=== PATIENT | male | born 1975 | race Caucasian/White ===

== ENCOUNTER 2020-01-05 11:15 | Day surgery (SDC) | payer BC ==
[2020-01-05] MEDS ORDERED: LIDOcaine 2% 5ml jelly ONE (12:13)
== END 2020-01-05 12:40 | disposition home or self-care (01) ==
LOC: WOUND CARE 11:15
PROVIDERS: ATTEND Nurse Practitioner
DX: K94.09 Other complications of colostomy (principal); L98.492 Non-pressure chronic ulcer of skin of other sites with fat layer exposed; I10 Essential (primary) hypertension; F32.9 Major depressive disorder, single episode, unspecified; Z86.711 Personal history of pulmonary embolism; Z79.84 Long term (current) use of oral hypoglycemic drugs; Y83.8 Other surgical procedures as the cause of abnormal reaction of the patient, or of later complication, without mention of misadventure at the time of the procedure; Y82.8 Other medical devices associated with adverse incidents; Y92.234 Operating room of hospital as the place of occurrence of the external cause
CPT/HCPCS: 82948; 97597

== ENCOUNTER 2020-01-12 13:15 | Outpatient (CLI) | payer BC ==
[2020-01-12] MEDS ORDERED: LIDOcaine 2% 5ml jelly ONE ×2 (14:22→14:25)
== END 2020-01-12 14:30 | disposition home or self-care (01) ==
LOC: WOUND CARE 13:15 → EDSTATUS 13:40 → WOUND CARE 14:30
PROVIDERS: ATTEND Nurse Practitioner
DX: T81.89XA Other complications of procedures, not elsewhere classified, initial encounter (principal); L98.492 Non-pressure chronic ulcer of skin of other sites with fat layer exposed; I10 Essential (primary) hypertension; F32.9 Major depressive disorder, single episode, unspecified; Z86.711 Personal history of pulmonary embolism; Z79.84 Long term (current) use of oral hypoglycemic drugs; Y83.8 Other surgical procedures as the cause of abnormal reaction of the patient, or of later complication, without mention of misadventure at the time of the procedure; Y92.234 Operating room of hospital as the place of occurrence of the external cause
CPT/HCPCS: 87070; 87075; 87102; 97597

== ENCOUNTER 2020-01-19 12:50 | Outpatient (CLI) | payer BC | END 2020-01-19 23:59 | disposition home or self-care (01) | LOC: WOUND CARE 12:50 → EDSTATUS 13:00 → WOUND CARE 23:59 | PROVIDERS: ATTEND Nurse Practitioner | DX: T81.89XD Other complications of procedures, not elsewhere classified, subsequent encounter (principal); E11.622 Type 2 diabetes mellitus with other skin ulcer; L98.492 Non-pressure chronic ulcer of skin of other sites with fat layer exposed; I10 Essential (primary) hypertension; E11.65 Type 2 diabetes mellitus with hyperglycemia; L84 Corns and callosities; Z86.711 Personal history of pulmonary embolism; F32.9 Major depressive disorder, single episode, unspecified; Z79.84 Long term (current) use of oral hypoglycemic drugs; Y83.8 Other surgical procedures as the cause of abnormal reaction of the patient, or of later complication, without mention of misadventure at the time of the procedure | CPT/HCPCS: 11042; 82948; 87070; 87075; 87076; 87077; 87102; 87185; 87186 ==

== ENCOUNTER 2020-01-24 10:20 | Outpatient (CLI) | payer BC ==
[2020-01-24] MEDS ORDERED: LIDOcaine 2% 5ml jelly ONE (10:47)
== END 2020-01-24 23:59 | disposition home or self-care (01) ==
LOC: EDSTATUS 10:20 → WOUND CARE 10:20
PROVIDERS: ATTEND Nurse Practitioner
DX: T81.89XD Other complications of procedures, not elsewhere classified, subsequent encounter (principal); L98.492 Non-pressure chronic ulcer of skin of other sites with fat layer exposed; S31.109S Unspecified open wound of abdominal wall, unspecified quadrant without penetration into peritoneal cavity, sequela; I10 Essential (primary) hypertension; F32.9 Major depressive disorder, single episode, unspecified; Z86.711 Personal history of pulmonary embolism; Z79.84 Long term (current) use of oral hypoglycemic drugs; Y83.8 Other surgical procedures as the cause of abnormal reaction of the patient, or of later complication, without mention of misadventure at the time of the procedure; X58.XXXD Exposure to other specified factors, subsequent encounter
CPT/HCPCS: 11043; 36416; 82948

== ENCOUNTER 2020-02-02 09:40 | Outpatient (CLI) | payer BC ==
[2020-02-02 12:03] LABS: BASOPHILS # (AUTO) 0.1 X10'3 (0-0.2); BASOPHILS % (AUTO) 0.9 % (0-1); EOSINOPHILS # (AUTO) 0.2 X10'3 (0-0.9); EOSINOPHILS % (AUTO) 3.4 % (0-6); LYMPHOCYTES % (AUTO) 33.7 % (21-51); MEAN CORPUSCULAR HEMOGLOBIN 25.7 PG (27.0-31.0); MEAN CORPUSCULAR HGB CONC 32.4 g/dL (33.0-36.5); MEAN CORPUSCULAR VOLUME 79.3 FL (78-98); MEAN PLATELET VOLUME 7.3 FL (7.4-10.4); MONOCYTES # (AUTO) 0.4 X10'3 (0-0.9); MONOCYTES % (AUTO) 7.5 % (2-12); NEUTROPHILS # (AUTO) 3.3 X10'3 (1.8-7.7); NEUTROPHILS % (AUTO) 54.5 % (42-75); PRE OP HEMATOCRIT 40.3 % (42.0-52.0); PRE OP PLATELET COUNT 226 X10'3 (140-440); RED BLOOD COUNT 5.08 X10'6 (4.70-6.10); RED CELL DISTRIBUTION WIDTH 16.6 % (11.5-14.5)
[2020-02-02 12:16] LABS: ALBUMIN 3.8 G/DL (3.4-5.0); ALBUMIN/GLOBULIN RATIO 0.9 (1.1-1.5); ALKALINE PHOSPHATASE 55 IU/L (46-116); BLOOD UREA NITROGEN 9 MG/DL (7-18); BUN/CREATININE RATIO 10.3 (5.4-32.0); C-REACTIVE PROTEIN 0.34 MG/DL (0.0-0.5); CALCIUM 9.3 MG/DL (8.5-10.1); CHLORIDE 103 MMOL/L (99-107); CREATININE 0.87 MG/DL (0.60-1.10); PRE OP ALT 15 U/L (30-65); PRE OP ANION GAP 10 (8-16); PRE OP AST 12 U/L (10-37); PRE OP BILIRUB, TOTAL 0.3 MG/DL (0.0-1.0); PRE OP GLUCOSE 96 MG/DL (70-104); PRE OP SODIUM 140 MMOL/L (135-145); TOTAL CARBON DIOXIDE 26.7 MMOL/L (24-32); TOTAL PROTEIN 8.2 G/DL (6.4-8.2); eGFR > 90 ML/MIN
[2020-02-02] MEDS ORDERED: APIX5TAB3 PO (15:36)
[2020-02-02] MEDS ORDERED: HYDR-3686 PO (15:36)
[2020-02-02] MEDS ORDERED: SERT50TA10 PO (15:36)
[2020-02-02] MEDS ORDERED: AMLO10TA13 PO (15:36)
[2020-02-02] MEDS ORDERED: ROSU5TAB12 PO (15:36)
[2020-02-02] MEDS ORDERED: LISI10TA4 PO (15:36)
[2020-02-02] MEDS ORDERED: METF-436 PO (15:36)
[2020-02-02] MEDS ORDERED: PANT-47 PO (15:36)
[2020-02-02] MEDS ORDERED: OXYC-138 PO (15:36)
== END 2020-02-02 23:59 | disposition home or self-care (01) ==
LOC: WOUND CARE 09:40 → EDSTATUS 10:00 → WOUND CARE 23:59
PROVIDERS: ATTEND Nurse Practitioner
DX: T81.89XD Other complications of procedures, not elsewhere classified, subsequent encounter (principal); E11.622 Type 2 diabetes mellitus with other skin ulcer; L98.492 Non-pressure chronic ulcer of skin of other sites with fat layer exposed; E11.65 Type 2 diabetes mellitus with hyperglycemia; I10 Essential (primary) hypertension; L84 Corns and callosities; F32.9 Major depressive disorder, single episode, unspecified; Z86.711 Personal history of pulmonary embolism; Z79.84 Long term (current) use of oral hypoglycemic drugs; Y83.8 Other surgical procedures as the cause of abnormal reaction of the patient, or of later complication, without mention of misadventure at the time of the procedure
CPT/HCPCS: 11042; 36415; 80053; 82948; 85025; 85651; 86140; 87070; 87075; 87102; 87635; 93005; C9803; 87185

== ENCOUNTER → 2020-02-02 | Day surgery (SDC) | payer BC ==
[2020-02-02] VITALS (13 sets, daily range): BP systolic 109–134; BP diastolic 80–91
[~2020-02-02] VITALS: Ht 193 cm; Wt 86.3 kg
[~2020-02-02] MED LIST: AMLO10TA13 PO; AMOX-422 PO; APIX5TAB3 PO; CIPR500T5 PO; HYDR-3686 PO; LIDOcaine 2% (20mg/ml) 5ml vial ONE; LISI10TA4 PO; METF-436 PO; METF-880 PO; METR-159 PO; OXYC-138 PO; OXYC1TAB17 PO; PANT-47 PO; PANT40TA54 PO; POTA20TA19 PO; ROSU5TAB12 PO; SENN-145 PO; SERT50TA10 PO; acetaminophen 1,000mg/100ml IV 100 ML IV PRN; amLODIPine 5mg tablet PO SCH; apixaban 5mg tablet PO SCH; atorvastatin 20mg tablet PO SCH; bacitracin 15gm ointment TP ONE; ceFAZolin 1000mg inj ONE; dexamethasone sod phosphate 4mg/ml inj. ONE; ePHEDrine 50MG/ML INJ. ONE; famotidine 20mg tablet PO ONE; fentaNYL/PF 50MCG/1 ML 2ML syringe ONE; lisinopril 10 MG tablet PO SCH; meperidine/PF 25mg/ml syringe IV PRN; midazolam 2 mg/2 ml injection ONE; morphine 10mg/ml inj. ONE; morphine 2 MG/ML inj. syringe IV PRN; morphine 4 MG/ML inj SYRINge IV PRN; ondansetron/PF 4mg/2ml inj IV PRN; ondansetron/PF 4mg/2ml inj ONE; pantoprazole 40mg Tablet.DR PO SCH; proCHLORperazine 10 MG/2 ml inj IV PRN; propofol inj 20 ML IV ONE; ringers solution, lacted 1,000 ML IV SCH; sertraline 50mg tablet PO SCH; sevoflurane 250ml liquid IH ONE
--- NOTE | 2020-02-02 17:05 | NUR ---
RECEIVED FROM OR VIA [facility] ACCOMPANIED BY ANESTHESIOLOGIST DR HAYNES, REPORT GIVEN. PT DROWSY BUT AROUSES EASILY, DENIES PAIN.20 GAUGE PIV L UE PATENT AND RUNNING LR AT 100 ML/HR. WOUND VAC DRESSING TO ABD CDI AND TO SUCTION AT 125 MM/HG. OSTOMY BAG LUQ ABD INTACT AND COLLECTING GREENISH BROWN MATTER. PPULSES PALPABLE, BRISK CAP REFILL, SKIN PINK AND WARM, VSS, CAREY, ABD SOFT. L PUPIL DILATED, WAS PRESENT BEFORE SURGERY. RESTING COMFORTABLY AT THIS TIME.
--- NOTE | 2020-02-02 18:55 | NUR ---
PT A&O X4, TOLERATING FLUIDS, ABLE TO DRESS SELF AND AMBULATE WITH NO ASSIST., DENIES PAIN.20 GAUGE PIV L UE DC/D CATH TIP INTACT. WOUND VAC DRESSING TO ABD CDI AND TO SUCTION AT 125 MM/HG. OSTOMY BAG LUQ ABD INTACT AND COLLECTING GREENISH BROWN MATTER. PPULSES PALPABLE, BRISK CAP REFILL, SKIN PINK AND WARM, VSS, CAREY, ABD SOFT. L PUPIL DILATED, WAS PRESENT BEFORE SURGERY. DISCHARGE INSTRUCTIONS GIVEN AND PT VERBALIZED UNDERSTANDING. TRANSPORTED VIA WHEELCHAIR TO MOTHER IN PRIVATE VEHICLE TO HOME.
== END | disposition home or self-care (01) ==
LOC: PAS 15:15 → EDSTATUS 15:15
PROVIDERS: ATTEND Surgery
DX: T81.89XA Other complications of procedures, not elsewhere classified, initial encounter (principal); I10 Essential (primary) hypertension; E78.5 Hyperlipidemia, unspecified; F32.9 Major depressive disorder, single episode, unspecified; E11.9 Type 2 diabetes mellitus without complications; K21.9 Gastro-esophageal reflux disease without esophagitis; Z86.711 Personal history of pulmonary embolism; Z79.01 Long term (current) use of anticoagulants; Z79.899 Other long term (current) drug therapy; Y83.8 Other surgical procedures as the cause of abnormal reaction of the patient, or of later complication, without mention of misadventure at the time of the procedure; Y92.89 Other specified places as the place of occurrence of the external cause
CPT/HCPCS: 11042; 82948; 97607; J0690; J1100; J2001; J2250; J2270; J2405; J2704; J3010; J7120; A4618; A6550; A7000

== ENCOUNTER 2020-02-06 10:24 | Outpatient (CLI) | payer BC ==
[~2020-02-06 10:24] MED LIST changes: -AMOX-422 PO; -CIPR500T5 PO; -LIDOcaine 2% (20mg/ml) 5ml vial ONE; -METF-880 PO; -METR-159 PO; -OXYC1TAB17 PO; -PANT40TA54 PO; -POTA20TA19 PO; -SENN-145 PO; -acetaminophen 1,000mg/100ml IV 100 ML IV PRN; -amLODIPine 5mg tablet PO SCH; -apixaban 5mg tablet PO SCH; -atorvastatin 20mg tablet PO SCH; -bacitracin 15gm ointment TP ONE; -ceFAZolin 1000mg inj ONE; -dexamethasone sod phosphate 4mg/ml inj. ONE; -ePHEDrine 50MG/ML INJ. ONE; -famotidine 20mg tablet PO ONE; -fentaNYL/PF 50MCG/1 ML 2ML syringe ONE; -lisinopril 10 MG tablet PO SCH; -meperidine/PF 25mg/ml syringe IV PRN; -midazolam 2 mg/2 ml injection ONE; -morphine 10mg/ml inj. ONE; -morphine 2 MG/ML inj. syringe IV PRN; -morphine 4 MG/ML inj SYRINge IV PRN; -ondansetron/PF 4mg/2ml inj IV PRN; -ondansetron/PF 4mg/2ml inj ONE; -pantoprazole 40mg Tablet.DR PO SCH; -proCHLORperazine 10 MG/2 ml inj IV PRN; -propofol inj 20 ML IV ONE; -ringers solution, lacted 1,000 ML IV SCH; -sertraline 50mg tablet PO SCH; -sevoflurane 250ml liquid IH ONE
[2020-02-06] MEDS ORDERED: LIDOcaine 2% 5ml jelly ONE (10:42)
== END 2020-02-06 23:59 | disposition home or self-care (01) ==
LOC: WOUND CARE 10:24 → EDSTATUS 11:00 → WOUND CARE 23:59
PROVIDERS: ATTEND Nurse Practitioner
DX: T81.89XA Other complications of procedures, not elsewhere classified, initial encounter (principal); E11.622 Type 2 diabetes mellitus with other skin ulcer; L98.492 Non-pressure chronic ulcer of skin of other sites with fat layer exposed; E11.65 Type 2 diabetes mellitus with hyperglycemia; I10 Essential (primary) hypertension; L84 Corns and callosities; F32.9 Major depressive disorder, single episode, unspecified; Z86.711 Personal history of pulmonary embolism; Z79.84 Long term (current) use of oral hypoglycemic drugs; Y83.8 Other surgical procedures as the cause of abnormal reaction of the patient, or of later complication, without mention of misadventure at the time of the procedure; Y92.234 Operating room of hospital as the place of occurrence of the external cause
CPT/HCPCS: 82948; 97597; 97598

== ENCOUNTER 2020-02-09 11:07 | Inpatient (IN) | payer BC ==
[~2020-02-09] VITALS: Ht 193 cm; Wt 86.4 kg
[2020-02-09 12:09] LABS: BASOPHILS # (AUTO) 0.1 X10'3 (0-0.2); BASOPHILS % (AUTO) 0.6 % (0-1); EOSINOPHILS # (AUTO) 0.1 X10'3 (0-0.9); EOSINOPHILS % (AUTO) 0.6 % (0-6); HEMATOCRIT 47.2 % (42.0-52.0); HEMOGLOBIN 15.2 g/dl (14.0-17.9); LYMPHOCYTES # (AUTO) 1.9 X10'3 (1.1-4.8); LYMPHOCYTES % (AUTO) 18.7 % (21-51); MEAN CORPUSCULAR HEMOGLOBIN 25.7 PG (27.0-31.0); MEAN CORPUSCULAR HGB CONC 32.3 g/dL (33.0-36.5); MEAN CORPUSCULAR VOLUME 79.6 FL (78-98); MEAN PLATELET VOLUME 7.5 FL (7.4-10.4); MONOCYTES # (AUTO) 0.5 X10'3 (0-0.9); MONOCYTES % (AUTO) 5.2 % (2-12); NEUTROPHILS # (AUTO) 7.5 X10'3 (1.8-7.7); NEUTROPHILS % (AUTO) 74.9 % (42-75); PLATELET COUNT 329 X10'3 (140-440); RED BLOOD COUNT 5.93 X10'6 (4.70-6.10); RED CELL DISTRIBUTION WIDTH 16.9 % (11.5-14.5)
[2020-02-09 12:22] LABS: ALANINE AMINOTRANSFERASE 26 U/L (12-78); ALBUMIN 4.5 G/DL (3.4-5.0); ALKALINE PHOSPHATASE 60 IU/L (46-116); ANION GAP 10 (8-16); ASPARTATE AMINO TRANSFERASE 21 U/L (10-37); BILIRUBIN,TOTAL 0.5 MG/DL (0.1-1.0); BLOOD UREA NITROGEN 11 MG/DL (7-18); CALCIUM 9.3 MG/DL (8.5-10.1); CHLORIDE 99 MMOL/L (99-107); GLUCOSE 148 MG/DL (70-104); POTASSIUM 3.8 MMOL/L (3.5-5.1); SODIUM 134 MMOL/L (135-145); TOTAL CARBON DIOXIDE 25.2 MMOL/L (24-32); eGFR 81 ML/MIN
[2020-02-09] MEDS ORDERED: CIPR500T5 PO (17:02)
[2020-02-09] MEDS ORDERED: METR-159 PO (17:02)
[2020-02-09] MEDS ORDERED: SENN-145 PO (17:02)
[2020-02-09] MEDS ORDERED: magnesium 4gm in 100ml NS 100 ML IV PRN (17:15)
[2020-02-09] MEDS ORDERED: magnesium Cl slow-release 64mg tablet PO PRN (17:15)
[2020-02-09] MEDS ORDERED: potassium Cl 20 mEq SR tablet PO PRN ×2 (17:15)
[2020-02-09] MEDS ORDERED: ondansetron/PF 4mg/2ml inj IV PRN (17:15)
[2020-02-09] MEDS ORDERED: acetaminophen 650mg rectal suppository RC PRN (17:15)
[2020-02-09] MEDS ORDERED: magnesium 2GM in 50ml NS 50 ML IV PRN (17:15)
[2020-02-09] MEDS ORDERED: morphine 2 MG/ML inj. syringe IV PRN (17:15)
[2020-02-09] MEDS ORDERED: potassium CL 10mEq/100ml bag 100 ML IV PRN (17:15)
[2020-02-09] MEDS ORDERED: dextrose ORAL solution 15 GM/59 ML bottle PO PRN ×2 (17:40)
[2020-02-09] MEDS ORDERED: MESSAGE TO PHARMACY PO ONE (17:40)
[2020-02-09] MEDS ORDERED: insulin Lispro (HumaLOG) vial - multi-dose SQ SCH (17:40)
[2020-02-09] MEDS ORDERED: dextrose 50%-water 50ml dispensing syringe IV PRN ×2 (17:40)
[2020-02-09] MEDS ORDERED: glucagon, human recombinant 1mg kit SUBCUT PRN (17:40)
[2020-02-09 17:59] LABS: HEMOGLOBIN A1C 5.2 % (4.5-6.2)
[2020-02-09 18:00] VITALS: BP 133/95
[2020-02-09] MEDS: normal saline 1000ml 1,000 ML IV SCH (18:14)
--- NOTE | 2020-02-09 19:35 | NUR ---
PATIENT ADMITTED TO ROOM 356B FROM ER FOR N/V ABDOMINAL PAIN. PLACED COMFORTABLE IN BED. VITAL SIGNS TAKEN AND RECORDED.
[2020-02-09] MEDS: K and/or MAG REPLACEMENT MC SCH (20:00)
--- NOTE | 2020-02-09 21:20 | NUR ---
PATIENT VERY PAINFUL, NOT TIME YET FOR MORPHINE, PAGED DR. TALAMANTES AND INFORMED OF PATIENT'S SEVERE PAIN WITH ORDER TO GIVE DILAUDED 0.5 MG IV Q4HRS PRN.
[2020-02-09] MEDS: insulin glargine (Lantus) pen - multi-dose SQ SCH (21:30)
[2020-02-09] MEDS: HYDROmorphone inj. 0.5 MG/0.5 ML DISP.SYRIN IV PRN (21:35)
[2020-02-09 23:32] VITALS: BP 125/90
[2020-02-10] MEDS: normal saline 1000ml 1,000 ML IV SCH ×2 (05:40→13:15)
[2020-02-10 06:00] LABS: BASOPHILS % (AUTO) 0.5 % (0-1); EOSINOPHILS # (AUTO) 0.1 X10'3 (0-0.9); EOSINOPHILS % (AUTO) 0.7 % (0-6); HEMATOCRIT 39.8 % (42.0-52.0); LYMPHOCYTES # (AUTO) 1.8 X10'3 (1.1-4.8); LYMPHOCYTES % (AUTO) 20.3 % (21-51); MEAN CORPUSCULAR HEMOGLOBIN 25.9 PG (27.0-31.0); MEAN CORPUSCULAR HGB CONC 32.8 g/dL (33.0-36.5); MEAN CORPUSCULAR VOLUME 78.8 FL (78-98); MEAN PLATELET VOLUME 7.9 FL (7.4-10.4); MONOCYTES # (AUTO) 0.5 X10'3 (0-0.9); MONOCYTES % (AUTO) 5.5 % (2-12); NEUTROPHILS # (AUTO) 6.4 X10'3 (1.8-7.7); PLATELET COUNT 249 X10'3 (140-440); RED BLOOD COUNT 5.04 X10'6 (4.70-6.10); RED CELL DISTRIBUTION WIDTH 16.3 % (11.5-14.5); WHITE BLOOD COUNT 8.8 X10'3 (4.5-11.0)
[2020-02-10 06:16] LABS: ALBUMIN 3.7 G/DL (3.4-5.0); ANION GAP 8 (8-16); BLOOD UREA NITROGEN 11 MG/DL (7-18); BUN/CREATININE RATIO 14.9 (5.4-32.0); CALCIUM 8.9 MG/DL (8.5-10.1); CHLORIDE 105 MMOL/L (99-107); CREATININE 0.74 MG/DL (0.60-1.10); GLUCOSE 122 MG/DL (70-104); MAGNESIUM 1.8 MG/DL (1.5-2.4); POTASSIUM 3.3 MMOL/L (3.5-5.1); SODIUM 138 MMOL/L (135-145); TOTAL CARBON DIOXIDE 24.6 MMOL/L (24-32); eGFR > 90 ML/MIN
--- NOTE | 2020-02-10 06:36 | NUR ---
Problems reprioritized. Patient report given, questions answered & plan of care reviewed with ANDRÉS WRIGHT.
--- NOTE | 2020-02-10 06:51 | NUR ---
Patient in room [facility] 356. I have received report from alissa maxwell rn and had the opportunity to ask questions and assume patient care.
[2020-02-10] MEDS: potassium CL 10mEq/100ml bag 100 ML IV PRN ×3 (07:32→13:11)
[2020-02-10 08:00] VITALS: BP 123/92
[2020-02-10] MEDS: HYDROmorphone inj. 0.5 MG/0.5 ML DISP.SYRIN IV PRN ×4 (08:38→20:18)
[2020-02-10] MEDS: K and/or MAG REPLACEMENT MC SCH ×2 (08:45→20:00)
[2020-02-10 11:52] VITALS: BP 126/94
--- NOTE | 2020-02-10 12:21 | NUR ---
Pt presented with c/o abdominal pain and N/V with wound VAC to abdominal wound. Wound care has been consulted, pending assessment at this time. Pt currently NPO. Recommend diet advancement to regular as medically indicated in view of patient with A1c 5.2%. Will continue to follow and monitor need for nutrition intervention with PO diet advancement. Addendum: 02/10/20 at [address] Amended: Links added.
--- NOTE | 2020-02-10 12:39 | NUR ---
PT REFUSED BLOOD SUGAR, BECAME COMBATIVE Addendum: 02/10/20 at 1510 by Carina Altamirano RN DISREGARD NOTE, WRONG PT
--- NOTE | 2020-02-10 15:11 | NUR ---
PAGER ID: [phone] MESSAGE: JUNG CALLOWAY. MED REC NEEDS TO BE ADDRESSED. SURGICAL ANDRÉS [id number]
[2020-02-10] MEDS: apixaban 5mg tablet PO SCH (15:45)
[2020-02-10] MEDS: sertraline 50mg tablet PO SCH (16:28)
[2020-02-10] MEDS: lisinopril 10 MG tablet PO SCH (16:34)
--- NOTE | 2020-02-10 19:02 | NUR ---
Problems reprioritized. Patient report given, questions answered & plan of care reviewed with alissa maxwell rn.
--- NOTE | 2020-02-10 19:03 | NUR ---
Patient in room [facility] 356. I have received report from ANDRÉS WRIGHT and had the opportunity to ask questions and assume patient care.
[2020-02-10 20:00] VITALS: BP 127/94
[2020-02-10] MEDS: hydrOXYzine 25 MG tablet PO SCH (20:19)
[2020-02-10] MEDS: insulin glargine (Lantus) pen - multi-dose SQ SCH (23:34)
[2020-02-11] VITALS: BP 121/90
[2020-02-11] MEDS: HYDROmorphone inj. 0.5 MG/0.5 ML DISP.SYRIN IV PRN ×4 (00:31→21:49)
[2020-02-11] MEDS: normal saline 1000ml 1,000 ML IV SCH ×3 (00:31→19:37)
[2020-02-11 05:11] LABS: ALBUMIN 3.5 G/DL (3.4-5.0); ANION GAP 12 (8-16); CALCIUM 8.5 MG/DL (8.5-10.1); CHLORIDE 101 MMOL/L (99-107); CREATININE 0.72 MG/DL (0.60-1.10); GLUCOSE 108 MG/DL (70-104); MAGNESIUM 1.6 MG/DL (1.5-2.4); POTASSIUM 3.6 MMOL/L (3.5-5.1); SODIUM 136 MMOL/L (135-145); eGFR > 90 ML/MIN
[2020-02-11 05:14] LABS: BLOOD UREA NITROGEN 9 MG/DL (7-18); BUN/CREATININE RATIO 12.5 (5.4-32.0)
[2020-02-11 06:29] LABS: BASOPHILS # (AUTO) 0.1 X10'3 (0-0.2); BASOPHILS % (AUTO) 0.7 % (0-1); EOSINOPHILS # (AUTO) 0.1 X10'3 (0-0.9); EOSINOPHILS % (AUTO) 1.8 % (0-6); HEMATOCRIT 38.2 % (42.0-52.0); HEMOGLOBIN 12.9 g/dl (14.0-17.9); LYMPHOCYTES # (AUTO) 2.1 X10'3 (1.1-4.8); LYMPHOCYTES % (AUTO) 26.9 % (21-51); MEAN CORPUSCULAR HEMOGLOBIN 26.6 PG (27.0-31.0); MEAN CORPUSCULAR HGB CONC 33.7 g/dL (33.0-36.5); MEAN CORPUSCULAR VOLUME 79.1 FL (78-98); MEAN PLATELET VOLUME 7.8 FL (7.4-10.4); MONOCYTES # (AUTO) 0.6 X10'3 (0-0.9); MONOCYTES % (AUTO) 7.4 % (2-12); NEUTROPHILS # (AUTO) 4.9 X10'3 (1.8-7.7); NEUTROPHILS % (AUTO) 63.2 % (42-75); PLATELET COUNT 214 X10'3 (140-440); RED BLOOD COUNT 4.83 X10'6 (4.70-6.10); RED CELL DISTRIBUTION WIDTH 16.3 % (11.5-14.5); WHITE BLOOD COUNT 7.7 X10'3 (4.5-11.0)
--- NOTE | 2020-02-11 06:30 | NUR ---
Problems reprioritized. Patient report given, questions answered & plan of care reviewed with VENU WRIGHT.
--- NOTE | 2020-02-11 06:44 | NUR ---
Patient in room [facility] 356. I have received report from ADRIANA Donovan and had the opportunity to ask questions and assume patient care.
[2020-02-11 07:00] VITALS: BP 129/91
[2020-02-11] MEDS: sennosides 8.6mg tablet PO SCH (08:00)
[2020-02-11] MEDS: K and/or MAG REPLACEMENT MC SCH ×2 (08:00→20:00)
[2020-02-11] MEDS: lisinopril 10 MG tablet PO SCH (08:46)
[2020-02-11] MEDS: sertraline 50mg tablet PO SCH (08:46)
[2020-02-11] MEDS: apixaban 5mg tablet PO SCH (08:46)
[2020-02-11] MEDS: atorvastatin 20mg tablet PO SCH (08:46)
[2020-02-11] MEDS: amLODIPine 5mg tablet PO SCH (08:47)
[2020-02-11 11:00] VITALS: BP 122/89
--- NOTE | 2020-02-11 15:01 | NUR ---
Nutrition consult: Received TC from JUAN RAMON stating pt previously received colostomy at [facility] however did not receive nutrition education. Pt seen at bedside provided with written and verbal protein and colostomy nutrition therapy educations with a list of fiber content in food. Pt reports little to no nutrition education was provided to him at [facility] other than that he could eat most foods as long as they were in cup sized portions. Despite not receiving appropriate nutrition therapy education pt seems to already have a pretty good understanding of appropriate diet with new colostomy, likely d/t trial and error eating. Pt reports he usually eats chicken, white toast, cold cereal, cooked veggies and canned fruits. Pt states he consumes no sugar Gatorade and though not with very adequate water intake, however states his SO is encouraging water intake. All of patient's questions were answered at this time. RD contact information provided and pt encouraged to reach out if additional questions. Pt endorsing a good appetite, diet was just advanced to full liquids from NPO. Recommend diet advancement to low fiber as medically indicated. Pt requests cottage cheese with dinners once diet is advanced, d/w dietary. Pt denies food allergies or difficulty chewing/swallowing. Will continue to follow. Addendum: 02/11/20 at [address] Amended: Links added.
--- NOTE | 2020-02-11 18:21 | NUR ---
Problems reprioritized. Patient report given, questions answered & plan of care reviewed with ADRIANA Donovan.
--- NOTE | 2020-02-11 18:30 | NUR ---
Patient in room [facility] 356. I have received report from VENU WRIGHT and had the opportunity to ask questions and assume patient care.
[2020-02-11 20:00] VITALS: BP 111/79
[2020-02-11] MEDS: insulin glargine (Lantus) pen - multi-dose SQ SCH (21:00)
[2020-02-11] MEDS: hydrOXYzine 25 MG tablet PO SCH (21:51)
[2020-02-12] VITALS: BP 123/88
[2020-02-12] MEDS: HYDROmorphone inj. 0.5 MG/0.5 ML DISP.SYRIN IV PRN ×2 (04:45→11:23)
[2020-02-12] MEDS: normal saline 1000ml 1,000 ML IV SCH (04:49)
[2020-02-12 05:39] LABS: ALBUMIN 3.6 G/DL (3.4-5.0); ANION GAP 9 (8-16); BLOOD UREA NITROGEN 7 MG/DL (7-18); BUN/CREATININE RATIO 8.9 (5.4-32.0); CALCIUM 8.9 MG/DL (8.5-10.1); CHLORIDE 106 MMOL/L (99-107); CREATININE 0.79 MG/DL (0.60-1.10); GLUCOSE 79 MG/DL (70-104); MAGNESIUM 1.9 MG/DL (1.5-2.4); POTASSIUM 3.4 MMOL/L (3.5-5.1); SODIUM 140 MMOL/L (135-145); TOTAL CARBON DIOXIDE 25.1 MMOL/L (24-32); eGFR > 90 ML/MIN
[2020-02-12 05:40] LABS: BASOPHILS # (AUTO) 0.1 X10'3 (0-0.2); BASOPHILS % (AUTO) 1.1 % (0-1); EOSINOPHILS # (AUTO) 0.2 X10'3 (0-0.9); EOSINOPHILS % (AUTO) 3.4 % (0-6); HEMATOCRIT 40.5 % (42.0-52.0); HEMOGLOBIN 13.2 g/dl (14.0-17.9); LYMPHOCYTES # (AUTO) 2.6 X10'3 (1.1-4.8); LYMPHOCYTES % (AUTO) 42.1 % (21-51); MEAN CORPUSCULAR HEMOGLOBIN 25.8 PG (27.0-31.0); MEAN CORPUSCULAR HGB CONC 32.6 g/dL (33.0-36.5); MEAN CORPUSCULAR VOLUME 79.1 FL (78-98); MEAN PLATELET VOLUME 7.6 FL (7.4-10.4); MONOCYTES # (AUTO) 0.5 X10'3 (0-0.9); MONOCYTES % (AUTO) 8.6 % (2-12); NEUTROPHILS # (AUTO) 2.8 X10'3 (1.8-7.7); NEUTROPHILS % (AUTO) 44.8 % (42-75); PLATELET COUNT 206 X10'3 (140-440); RED BLOOD COUNT 5.12 X10'6 (4.70-6.10); RED CELL DISTRIBUTION WIDTH 16.2 % (11.5-14.5); WHITE BLOOD COUNT 6.1 X10'3 (4.5-11.0)
--- NOTE | 2020-02-12 06:06 | NUR ---
Problems reprioritized. Patient report given, questions answered & plan of care reviewed with AUDIE WRIGHT.
[2020-02-12 07:00] VITALS: BP 123/90
[2020-02-12] MEDS: K and/or MAG REPLACEMENT MC SCH (08:00)
[2020-02-12] MEDS: apixaban 5mg tablet PO SCH (08:09)
[2020-02-12] MEDS: atorvastatin 20mg tablet PO SCH (08:09)
[2020-02-12] MEDS: lisinopril 10 MG tablet PO SCH (08:10)
[2020-02-12] MEDS: amLODIPine 5mg tablet PO SCH (08:10)
[2020-02-12] MEDS: sennosides 8.6mg tablet PO SCH (08:10)
[2020-02-12] MEDS: sertraline 50mg tablet PO SCH (08:10)
[2020-02-12 11:00] VITALS: BP 123/90
[2020-02-12] MEDS ORDERED: POTA20TA19 PO (11:48)
--- NOTE | 2020-02-12 13:42 | NUR ---
Patient in room [facility] 356. I have received report from REED MCBRIDE RN and had the opportunity to ask questions and assume patient care.
== END 2020-02-12 16:04 | disposition home health service (06) | DRG 390 ==
LOC: ER 11:08 → ED HOLD 17:13 → SUR 3N 19:30
PROVIDERS: ADMIT Internal Medicine; ATTEND Internal Medicine
DX: K56.41 Fecal impaction (principal); E11.9 Type 2 diabetes mellitus without complications; E78.5 Hyperlipidemia, unspecified; E87.6 Hypokalemia; I10 Essential (primary) hypertension; Z93.3 Colostomy status; Z86.711 Personal history of pulmonary embolism; Z79.84 Long term (current) use of oral hypoglycemic drugs; Z79.01 Long term (current) use of anticoagulants
CPT/HCPCS: 36415; 71045; 74176; 80048; 80053; 82948; 83036; 83605; 83735; 84145; 85025; 87040; 87081; 99285; G0378; J1170; J1815; J2270; J2405; J3480; J7030; Q0177

== ENCOUNTER 2020-02-13 10:13 | Outpatient (CLI) | payer BC ==
[~2020-02-13 10:13] MED LIST changes: +CIPR500T5 PO; +METR-159 PO; +POTA20TA19 PO; +SENN-145 PO
[2020-02-13] MEDS ORDERED: LIDOcaine 2% 5ml jelly ONE (10:40)
== END 2020-02-13 23:59 | disposition home or self-care (01) ==
LOC: WOUND CARE 10:13 → EDSTATUS 11:00 → WOUND CARE 23:59
PROVIDERS: ATTEND Nurse Practitioner Family
DX: T81.89XD Other complications of procedures, not elsewhere classified, subsequent encounter (principal); E11.622 Type 2 diabetes mellitus with other skin ulcer; L98.492 Non-pressure chronic ulcer of skin of other sites with fat layer exposed; E11.65 Type 2 diabetes mellitus with hyperglycemia; I10 Essential (primary) hypertension; L84 Corns and callosities; K21.9 Gastro-esophageal reflux disease without esophagitis; E78.5 Hyperlipidemia, unspecified; E87.6 Hypokalemia; F32.9 Major depressive disorder, single episode, unspecified; Z86.711 Personal history of pulmonary embolism; Z79.84 Long term (current) use of oral hypoglycemic drugs; Z79.01 Long term (current) use of anticoagulants; Z79.899 Other long term (current) drug therapy; Y83.8 Other surgical procedures as the cause of abnormal reaction of the patient, or of later complication, without mention of misadventure at the time of the procedure
CPT/HCPCS: 36416; 82948; 97597

== ENCOUNTER 2020-02-20 10:48 | Outpatient (CLI) | payer BC ==
[2020-02-20] MEDS ORDERED: LIDOcaine 2% 5ml jelly ONE (11:14)
== END 2020-02-20 23:59 | disposition home or self-care (01) ==
LOC: WOUND CARE 10:48 → EDSTATUS 11:00 → WOUND CARE 23:59
PROVIDERS: ATTEND Nurse Practitioner Family
DX: T81.89XD Other complications of procedures, not elsewhere classified, subsequent encounter (principal); E11.622 Type 2 diabetes mellitus with other skin ulcer; L98.492 Non-pressure chronic ulcer of skin of other sites with fat layer exposed; E11.65 Type 2 diabetes mellitus with hyperglycemia; I10 Essential (primary) hypertension; L84 Corns and callosities; K21.9 Gastro-esophageal reflux disease without esophagitis; E78.5 Hyperlipidemia, unspecified; E87.6 Hypokalemia; F32.9 Major depressive disorder, single episode, unspecified; Z86.711 Personal history of pulmonary embolism; Z79.84 Long term (current) use of oral hypoglycemic drugs; Z79.01 Long term (current) use of anticoagulants; Z79.899 Other long term (current) drug therapy; Y83.8 Other surgical procedures as the cause of abnormal reaction of the patient, or of later complication, without mention of misadventure at the time of the procedure
CPT/HCPCS: 82948; 97597

== ENCOUNTER 2020-02-27 11:32 | Inpatient (IN) | payer BC ==
[~2020-02-27] VITALS: Ht 193 cm; Wt 85.0 kg
[2020-02-27] MEDS ORDERED: LIDOcaine 2% 5ml jelly ONE (12:51)
--- NOTE | 2020-02-27 14:30 | NUR ---
Patient arrived to floor. VSS.
[2020-02-27 14:36] VITALS: BP 123/85
[2020-02-27] MEDS ORDERED: magnesium hydroxide 30ml (MOM) UD suspension PO PRN (14:50)
[2020-02-27] MEDS ORDERED: mag hydrox/Alum hydrox/simeth 30ml oral suspension PO PRN (14:50)
[2020-02-27] MEDS: normal saline 1000ml 1,000 ML IV SCH (15:55)
[2020-02-27 16:43] LABS: BASOPHILS % (AUTO) 0.7 % (0-1); EOSINOPHILS # (AUTO) 0.3 X10'3 (0-0.9); HEMATOCRIT 42.5 % (42.0-52.0); HEMOGLOBIN 13.9 g/dl (14.0-17.9); LYMPHOCYTES # (AUTO) 1.9 X10'3 (1.1-4.8); LYMPHOCYTES % (AUTO) 31.7 % (21-51); MEAN CORPUSCULAR HGB CONC 32.6 g/dL (33.0-36.5); MEAN CORPUSCULAR VOLUME 79.8 FL (78-98); MEAN PLATELET VOLUME 7.1 FL (7.4-10.4); MONOCYTES # (AUTO) 0.4 X10'3 (0-0.9); MONOCYTES % (AUTO) 7.2 % (2-12); NEUTROPHILS # (AUTO) 3.4 X10'3 (1.8-7.7); NEUTROPHILS % (AUTO) 55.4 % (42-75); PLATELET COUNT 231 X10'3 (140-440); RED BLOOD COUNT 5.33 X10'6 (4.70-6.10); RED CELL DISTRIBUTION WIDTH 16.6 % (11.5-14.5); WHITE BLOOD COUNT 6.1 X10'3 (4.5-11.0)
[2020-02-27] MEDS: HYDROmorphone 1 mg/ml syringe IV PRN ×2 (16:46→20:44)
[2020-02-27 17:00] LABS: ALANINE AMINOTRANSFERASE 22 U/L (12-78); ALBUMIN 3.7 G/DL (3.4-5.0); ALBUMIN/GLOBULIN RATIO 0.9 (1.1-1.5); ALKALINE PHOSPHATASE 53 IU/L (46-116); ANION GAP 9 (8-16); ASPARTATE AMINO TRANSFERASE 11 U/L (10-37); BILIRUBIN,TOTAL 0.4 MG/DL (0.1-1.0); BLOOD UREA NITROGEN 6 MG/DL (7-18); BUN/CREATININE RATIO 7.2 (5.4-32.0); CALCIUM 9.4 MG/DL (8.5-10.1); CHLORIDE 102 MMOL/L (99-107); CREATININE 0.83 MG/DL (0.60-1.10); GLUCOSE 80 MG/DL (70-104); POTASSIUM 3.7 MMOL/L (3.5-5.1); SODIUM 140 MMOL/L (135-145); TOTAL CARBON DIOXIDE 28.6 MMOL/L (24-32); TOTAL PROTEIN 7.6 G/DL (6.4-8.2); eGFR > 90 ML/MIN
--- NOTE | 2020-02-27 18:11 | NUR ---
Problems reprioritized. Patient report given, questions answered & plan of care reviewed with ADRIANA Cornejo.
[2020-02-27 18:30] VITALS: BP 130/93
--- NOTE | 2020-02-27 18:34 | NUR ---
Problems reprioritized. Patient report given, questions answered & plan of care reviewed with ADRIANA Rubin. Addendum: 02/27/20 at 1835 by Leta Wesley RN ADRIANA Cornejo
[2020-02-27] MEDS ORDERED: furosemide 40mg/4ml inj IV SCH (20:00)
[2020-02-27] MEDS: heparin, porcine 5000 units/ml vial SQ SCH (20:00)
[2020-02-28] VITALS (21 sets, daily range): BP systolic 90–136; BP diastolic 61–99
[2020-02-28] MEDS: normal saline 1000ml 1,000 ML IV SCH ×3 (01:18→21:43)
[2020-02-28] MEDS: HYDROmorphone 1 mg/ml syringe IV PRN ×5 (01:22→17:12)
[2020-02-28 04:56] LABS: BASOPHILS % (AUTO) 0.6 % (0-1); EOSINOPHILS # (AUTO) 0.4 X10'3 (0-0.9); EOSINOPHILS % (AUTO) 4.9 % (0-6); HEMATOCRIT 39.7 % (42.0-52.0); HEMOGLOBIN 12.9 g/dl (14.0-17.9); LYMPHOCYTES % (AUTO) 26.4 % (21-51); MEAN CORPUSCULAR HGB CONC 32.3 g/dL (33.0-36.5); MEAN CORPUSCULAR VOLUME 80.3 FL (78-98); MEAN PLATELET VOLUME 7.3 FL (7.4-10.4); MONOCYTES # (AUTO) 0.6 X10'3 (0-0.9); MONOCYTES % (AUTO) 8.5 % (2-12); NEUTROPHILS # (AUTO) 4.5 X10'3 (1.8-7.7); NEUTROPHILS % (AUTO) 59.6 % (42-75); PLATELET COUNT 221 X10'3 (140-440); RED BLOOD COUNT 4.95 X10'6 (4.70-6.10); RED CELL DISTRIBUTION WIDTH 16.1 % (11.5-14.5); WHITE BLOOD COUNT 7.5 X10'3 (4.5-11.0)
[2020-02-28 05:17] LABS: ALANINE AMINOTRANSFERASE 19 U/L (12-78); ALBUMIN 3.2 G/DL (3.4-5.0); ALBUMIN/GLOBULIN RATIO 0.9 (1.1-1.5); ALKALINE PHOSPHATASE 50 IU/L (46-116); ANION GAP 7 (8-16); ASPARTATE AMINO TRANSFERASE 13 U/L (10-37); BILIRUBIN,TOTAL 0.4 MG/DL (0.1-1.0); BLOOD UREA NITROGEN 9 MG/DL (7-18); BUN/CREATININE RATIO 9.3 (5.4-32.0); CALCIUM 8.9 MG/DL (8.5-10.1); CHLORIDE 105 MMOL/L (99-107); CREATININE 0.97 MG/DL (0.60-1.10); GLUCOSE 82 MG/DL (70-104); POTASSIUM 4.3 MMOL/L (3.5-5.1); SODIUM 140 MMOL/L (135-145); TOTAL CARBON DIOXIDE 28.3 MMOL/L (24-32); TOTAL PROTEIN 6.8 G/DL (6.4-8.2); eGFR 84 ML/MIN
--- NOTE | 2020-02-28 06:30 | NUR ---
Patient in room [facility] 344. I have received report from Clemente WRIGHT and had the opportunity to ask questions and assume patient care.
--- NOTE | 2020-02-28 06:51 | NUR ---
Problems reprioritized. Patient report given, questions answered & plan of care reviewed with VITALIY. Addendum: 02/28/20 at 0651 by Boo Bettencourt RN Amended: Links added.
[2020-02-28] MEDS: heparin, porcine 5000 units/ml vial SQ SCH ×3 (07:23→20:10)
[2020-02-28] MEDS ORDERED: ringers solution, lacted 1,000 ML IV ONE (09:28)
[2020-02-28] MEDS ORDERED: famotidine/PF 10 mg/ml inj IV ONE ×2 (09:28→10:09)
[2020-02-28] MEDS ORDERED: HYDROmorphone/PF 0.2 MG/ML SYRINGE IV PRN ×2 (10:00)
[2020-02-28] MEDS ORDERED: hydrALAZINE 20mg/ml inj. IV PRN (10:00)
[2020-02-28] MEDS ORDERED: proCHLORperazine 10 MG/2 ml inj IV PRN (10:00)
[2020-02-28] MEDS ORDERED: morphine 2 MG/ML inj. syringe IV PRN (10:00)
[2020-02-28] MEDS ORDERED: ondansetron/PF 4mg/2ml inj IV PRN (10:00)
[2020-02-28] MEDS ORDERED: ringers solution, lacted 1,000 ML IV SCH (10:00)
[2020-02-28] MEDS ORDERED: meperidine/PF 25mg/ml syringe IV PRN (10:00)
[2020-02-28] MEDS ORDERED: acetaminophen 1,000mg/100ml IV 100 ML IV PRN (10:00)
[2020-02-28] MEDS ORDERED: labetalol 20mg/4ml (5mg/ml) syringe IV PRN (10:00)
[2020-02-28] MEDS ORDERED: METF-880 PO (10:06)
[2020-02-28] MEDS ORDERED: POTA20TA19 PO (10:06)
[2020-02-28] MEDS ORDERED: PANT40TA54 PO (10:06)
[2020-02-28] MEDS ORDERED: fentaNYL/PF 50MCG/1 ML 2ML syringe ONE (10:10)
[2020-02-28] MEDS ORDERED: sevoflurane 250ml liquid IH ONE (10:10)
[2020-02-28] MEDS ORDERED: midazolam 2 mg/2 ml injection ONE (10:10)
[2020-02-28] MEDS ORDERED: oxyCODONE/APAP 10/325mg tablet PO PRN (10:15)
[2020-02-28] MEDS: amLODIPine 5mg tablet PO SCH (10:22)
[2020-02-28] MEDS ORDERED: LIDOcaine 2% (20mg/ml) 5ml vial ONE (10:24)
[2020-02-28] MEDS ORDERED: propofol inj 20 ML IV ONE (10:24)
[2020-02-28] MEDS ORDERED: rocuronium 10mg/ml inj IV ONE (10:24)
[2020-02-28] MEDS ORDERED: dexamethasone sod phosphate 4mg/ml inj. ONE (10:24)
[2020-02-28] MEDS ORDERED: ondansetron/PF 4mg/2ml inj ONE (10:24)
[2020-02-28] MEDS ORDERED: ceFOXitin 1000 MG inj ONE ×2 (10:31)
[2020-02-28] MEDS ORDERED: ePHEDrine 50MG/ML INJ. ONE (10:34)
[2020-02-28] MEDS ORDERED: 0.9 % SODIUM CHLORIDE 10 ML VIAL ONE (10:34)
[2020-02-28] MEDS ORDERED: neostigmine methylsulfate 1 MG/ML 10ml vial ONE (11:55)
[2020-02-28] MEDS ORDERED: glycopyrrolate 0.2mg/ml inj ONE (11:55)
--- NOTE | 2020-02-28 12:02 | NUR ---
Received from OR via , accompanied by Anesthesiologist DR HAYNES and report given by Anesthesiolgist. AWAKENS TO VOICE. VITALS STABLE. SM AMNT OF RED DRAINAGE NOTED FROM STOMAL DRESSING. JESUS PAIN. ABD SOFT.
--- NOTE | 2020-02-28 12:25 | NUR ---
Malnutrition consult: Pt reports 34 or more lbs wt loss with decreased appetite per malnutrition risk screen with RN. Patient with a scaled wt hx of 86.3 kg taken 02/01 with a standing scale, current bed scaled weight is 86.36 kg. Wt appears stable. Pt on a heart healthy diet documented with 100% PO intake first meal. Pt recently admitted and seen by RD 02/10 and pt with no visible fat or muscle wasting noted at that time. Pt with no documented decrease in muscle strength or edema. Pt currently lacks a minimum of two criteria for malnutrition. Pt admit for colostomy takedown. Pt provided with written and verbal nutrition therapy education and RD contact information at last visit (02/10), no further education warranted at this time. Recommend diet advancement to low fiber as medically indicated post-op. D/w dietary to send cottage cheese with dinners once PO diet resumes per pt previous request. Will remain available. Addendum: 02/28/20 at [address] Amended: Links added.
[2020-02-28] MEDS: morphine 4 MG/ML inj SYRINge IV PRN ×2 (12:30→12:42)
--- NOTE | 2020-02-28 13:02 | NUR ---
Report called to receiving nurse. Transferred via BED Belongings . Special Issues communicated to receiving nurse. AWAKE AND ORIENTED. VITALS STABLE. DRESSING DI. STATES PAIN IMPROVING SOME. TO SURGICAL RM 344A AT THIS TIME.
[2020-02-28] MEDS ORDERED: naloxone 0.4 mg/ml inj IV PRN (18:00)
[2020-02-28] MEDS ORDERED: CADD PCA waste documentation MC PRN (18:00)
--- NOTE | 2020-02-28 18:31 | NUR ---
Problems reprioritized. Patient report given, questions answered & plan of care reviewed with Clemente WRIGHT.
[2020-02-28] MEDS: HYDROmorphone/NS 1 mg/ml CADD 50 ML IV SCH ×3 (19:17→23:00)
[2020-02-28] MEDS: metFORMIN 500mg tablet PO SCH (20:09)
[2020-02-28] MEDS: ketorolac tromethamine 15mg/ml inj. IV PRN (20:13)
[2020-02-28] MEDS ORDERED: ALPRAZolam 0.5mg tablet PO PRN (21:25)
--- NOTE | 2020-02-28 22:00 | NUR ---
50 ML OF SANGUINESS FLUID FROM COLOSTOMY APPLIANCE.
[2020-02-29] VITALS (8 sets, daily range): BP systolic 90–109; BP diastolic 57–70
[2020-02-29] MEDS: HYDROmorphone/NS 1 mg/ml CADD 50 ML IV SCH ×9 (01:00→17:00)
[2020-02-29 05:13] LABS: BASOPHILS % (AUTO) 0.1 % (0-1); EOSINOPHILS % (AUTO) 0 % (0-6); HEMATOCRIT 31.7 % (42.0-52.0); HEMOGLOBIN 10.6 g/dl (14.0-17.9); LYMPHOCYTES # (AUTO) 0.8 X10'3 (1.1-4.8); LYMPHOCYTES % (AUTO) 8.5 % (21-51); MEAN CORPUSCULAR HEMOGLOBIN 27.1 PG (27.0-31.0); MEAN CORPUSCULAR HGB CONC 33.4 g/dL (33.0-36.5); MEAN CORPUSCULAR VOLUME 81.2 FL (78-98); MEAN PLATELET VOLUME 7.5 FL (7.4-10.4); MONOCYTES # (AUTO) 0.7 X10'3 (0-0.9); MONOCYTES % (AUTO) 7.4 % (2-12); NEUTROPHILS # (AUTO) 8.4 X10'3 (1.8-7.7); PLATELET COUNT 272 X10'3 (140-440); RED CELL DISTRIBUTION WIDTH 15.7 % (11.5-14.5)
[2020-02-29 05:20] LABS: ALANINE AMINOTRANSFERASE 18 U/L (12-78); ALBUMIN 3.2 G/DL (3.4-5.0); ALBUMIN/GLOBULIN RATIO 0.9 (1.1-1.5); ALKALINE PHOSPHATASE 45 IU/L (46-116); ANION GAP 8 (8-16); ASPARTATE AMINO TRANSFERASE 10 U/L (10-37); BILIRUBIN,TOTAL 0.3 MG/DL (0.1-1.0); BLOOD UREA NITROGEN 16 MG/DL (7-18); BUN/CREATININE RATIO 9.9 (5.4-32.0); CALCIUM 8.9 MG/DL (8.5-10.1); CHLORIDE 107 MMOL/L (99-107); CREATININE 1.62 MG/DL (0.60-1.10); GLUCOSE 116 MG/DL (70-104); SODIUM 141 MMOL/L (135-145); TOTAL CARBON DIOXIDE 25.6 MMOL/L (24-32); TOTAL PROTEIN 6.6 G/DL (6.4-8.2); eGFR 47 ML/MIN
[2020-02-29 05:25] LABS: POTASSIUM 6.1 MMOL/L (3.5-5.1)
--- NOTE | 2020-02-29 05:27 | NUR ---
critical lab reported to ADRIANA Cornejo. Lab notified to redraw specimen.
--- NOTE | 2020-02-29 06:58 | NUR ---
Patient in room [facility] 344. I have received report from ADRIANA Cornejo and had the opportunity to ask questions and assume patient care.
[2020-02-29] MEDS: pantoprazole 40mg Tablet.DR PO SCH (07:17)
[2020-02-29] MEDS: sertraline 50mg tablet PO SCH (07:17)
[2020-02-29] MEDS: metFORMIN 500mg tablet PO SCH ×2 (07:17→19:13)
[2020-02-29] MEDS: heparin, porcine 5000 units/ml vial SQ SCH ×2 (07:18→19:14)
[2020-02-29] MEDS: normal saline 1000ml 1,000 ML IV SCH ×2 (07:20→16:40)
[2020-02-29] MEDS: amLODIPine 5mg tablet PO SCH (07:25)
[2020-02-29] MEDS ORDERED: potassium Cl 20 mEq SR tablet PO SCH (08:00)
[2020-02-29] MEDS ORDERED: lisinopril 10 MG tablet PO SCH (08:00)
[2020-02-29 08:26] LABS: ALANINE AMINOTRANSFERASE 19 U/L (12-78); ALBUMIN 3.2 G/DL (3.4-5.0); ANION GAP 6 (8-16); ASPARTATE AMINO TRANSFERASE 11 U/L (10-37); BILIRUBIN,TOTAL 0.3 MG/DL (0.1-1.0); BLOOD UREA NITROGEN 18 MG/DL (7-18); BUN/CREATININE RATIO 11.3 (5.4-32.0); CHLORIDE 106 MMOL/L (99-107); GLUCOSE 111 MG/DL (70-104); POTASSIUM 5.6 MMOL/L (3.5-5.1); SODIUM 139 MMOL/L (135-145); TOTAL CARBON DIOXIDE 26.8 MMOL/L (24-32); TOTAL PROTEIN 6.5 G/DL (6.4-8.2); eGFR 47 ML/MIN
[2020-02-29 08:35] LABS: ALKALINE PHOSPHATASE 39 IU/L (46-116)
--- NOTE | 2020-02-29 11:10 | NUR ---
tattoo designer Alyssa at bedside.
[2020-02-29] MEDS: ketorolac tromethamine 15mg/ml inj. IV PRN (14:33)
--- NOTE | 2020-02-29 16:56 | NUR ---
Patient reports "feeling weird. Like I'm shaking and fighting this." Patient reports "prediabetic" blood sugar checked and 93, temp 98.5, pulse 130, resp 20, bp 137/91, O2 was 87-88 then went right to [address] RA[address] Denies chest pain. Dr. Torres notified
--- NOTE | 2020-02-29 17:19 | NUR ---
Eva, log carrier operator in to assess patient. Veronica, ICU head charger called. Obtaining EKG.
[2020-02-29] MEDS ORDERED: HYDROmorphone 1 mg/ml syringe IV PRN (17:35)
[2020-02-29] MEDS ORDERED: HYDROmorphone inj. 0.5 MG/0.5 ML DISP.SYRIN IV PRN (17:35)
--- NOTE | 2020-02-29 17:37 | NUR ---
Veronica ICU tank charger bedside, EKG obtained, Dr Torres notified of EKG results. Orders received from Dr. Torres.
--- NOTE | 2020-02-29 17:53 | NUR ---
Dr. Torres in to see patient. Received new orders. central lab technician at bedside.
[2020-02-29] MEDS ORDERED: furosemide 40mg/4ml inj IV ONE (17:55)
--- NOTE | 2020-02-29 18:01 | NUR ---
Patient reports "feeling better" Will continue to monitor.
--- NOTE | 2020-02-29 18:34 | NUR ---
Problems reprioritized. Patient report given, questions answered & plan of care reviewed with ADRIANA PHIPPS.
--- NOTE | 2020-02-29 18:47 | NUR ---
Patient in room [facility] 344. I have received report from ADRIANA Martínez and had the opportunity to ask questions and assume patient care.
[2020-02-29 19:00] LABS: ALANINE AMINOTRANSFERASE 21 U/L (12-78); ALBUMIN 3.6 G/DL (3.4-5.0); ALKALINE PHOSPHATASE 54 IU/L (46-116); ANION GAP 10 (8-16); ASPARTATE AMINO TRANSFERASE 13 U/L (10-37); BILIRUBIN,TOTAL 0.4 MG/DL (0.1-1.0); BLOOD UREA NITROGEN 19 MG/DL (7-18); BUN/CREATININE RATIO 13.2 (5.4-32.0); CALCIUM 8.7 MG/DL (8.5-10.1); CHLORIDE 102 MMOL/L (99-107); CREATININE 1.44 MG/DL (0.60-1.10); GLUCOSE 96 MG/DL (70-104); POTASSIUM 4.8 MMOL/L (3.5-5.1); SODIUM 137 MMOL/L (135-145); TOTAL CARBON DIOXIDE 25.3 MMOL/L (24-32); TOTAL PROTEIN 7.3 G/DL (6.4-8.2); eGFR 53 ML/MIN
[2020-02-29] MEDS: sodium bicarbonate (8.4%) inj. 50 MEQ in dextrose 5%-water 1,000 ML IV SCH (19:09)
[2020-02-29] MEDS: acetaminophen 325mg tablet PO PRN (19:13)
[2020-02-29] MEDS: HYDROmorphone 1 mg/ml syringe IV PRN ×2 (19:16→23:39)
[2020-02-29] MEDS ORDERED: normal saline 500ml IV soln 500 ML IV ONE (19:55)
[2020-02-29] MEDS: ondansetron/PF 4mg/2ml inj IV PRN (22:14)
[2020-02-29] MEDS: piperacillin/tazo 3.375gm/50ml 50 ML IV SCH (22:16)
--- NOTE | 2020-02-29 22:56 | NUR ---
184: Patients call light was on. He was hooked up to a pulse ox and it was alarming. HR was 149 and was not trending down. Patient was also complaining of pain. I informed the charge nurse of patients heart rate, the fact that he had hypo active bowel sounds, and he has not passed any gas. His ostomy had about 150ml dark blood in it. I also had taken his temp and it was 101.1 BP 109/66 P 149 R 18 92%2l 1929: Patients medications were given, a long with Dilaudid, and Tylenol for his fever. I then called the surgeon and he gave me orders to get blood cultures, start patient on Zosyn, hold heparin, and move patient to Tele for heart monitoring. He also asked if I could call the hospitalist and have her look at is fluid balance, if the hospitalist thought, he needed a 500ml bolus to do so. Which I ended up doing after talking to the hospitalist. A COVID test was also ordered, and was negative. 2020: Patient temp 103.1 , HR 145. 2100: Temp 101. HR: 137 BP: 104/59 93%2l R:20. Received room number and called report to ADRIANA Valerio [id number] transfered patient to Tele unit Addendum: 03/01/20 at 0342 by Garrison Goodman RN Surgeon held heparin after I informed him of red blood in his colostomy
[2020-03-01] VITALS (8 sets, daily range): BP systolic 84–119; BP diastolic 53–81
[2020-03-01] MEDS ORDERED: piperacillin/tazo 3.375gm/50ml 50 ML IV SCH
[2020-03-01] MEDS: acetaminophen 325mg tablet PO PRN (02:40)
--- NOTE | 2020-03-01 02:48 | NUR ---
Page Sent PAGER ID: [phone] MESSAGE: pt Kelvin Guajardo in [id number] 44 M here for colostomy revision, pt BP 84/53. HR 122, colostomy o/p blood about 175 since 1800.- Teodoro [id number]
[2020-03-01] MEDS ORDERED: normal saline 1000ml 1,000 ML IVB ONE (03:30)
--- NOTE | 2020-03-01 03:30 | NUR ---
spoke with Dr. Bains regarding pts BP 84/53, received order for a 1000ml NS bolus.
[2020-03-01 03:55] LABS: BASOPHILS # (AUTO) 0.1 X10'3 (0-0.2); BASOPHILS % (AUTO) 0.3 % (0-1); EOSINOPHILS % (AUTO) 0.1 % (0-6); HEMATOCRIT 27.4 % (42.0-52.0); HEMOGLOBIN 8.9 g/dl (14.0-17.9); LYMPHOCYTES # (AUTO) 0.9 X10'3 (1.1-4.8); LYMPHOCYTES % (AUTO) 5.9 % (21-51); MEAN CORPUSCULAR HEMOGLOBIN 26.2 PG (27.0-31.0); MEAN CORPUSCULAR HGB CONC 32.6 g/dL (33.0-36.5); MEAN CORPUSCULAR VOLUME 80.5 FL (78-98); MEAN PLATELET VOLUME 7.4 FL (7.4-10.4); MONOCYTES # (AUTO) 1.3 X10'3 (0-0.9); MONOCYTES % (AUTO) 8.4 % (2-12); NEUTROPHILS # (AUTO) 13.1 X10'3 (1.8-7.7); NEUTROPHILS % (AUTO) 85.3 % (42-75); PLATELET COUNT 197 X10'3 (140-440); RED CELL DISTRIBUTION WIDTH 16.3 % (11.5-14.5); WHITE BLOOD COUNT 15.4 X10'3 (4.5-11.0)
[2020-03-01 04:06] LABS: ALANINE AMINOTRANSFERASE 17 U/L (12-78); ALBUMIN 2.8 G/DL (3.4-5.0); ALBUMIN/GLOBULIN RATIO 0.9 (1.1-1.5); ALKALINE PHOSPHATASE 42 IU/L (46-116); ANION GAP 11 (8-16); ASPARTATE AMINO TRANSFERASE 11 U/L (10-37); BILIRUBIN,TOTAL 0.6 MG/DL (0.1-1.0); BLOOD UREA NITROGEN 22 MG/DL (7-18); BUN/CREATININE RATIO 11.6 (5.4-32.0); CALCIUM 8.3 MG/DL (8.5-10.1); CHLORIDE 101 MMOL/L (99-107); CREATININE 1.89 MG/DL (0.60-1.10); GLUCOSE 141 MG/DL (70-104); POTASSIUM 4.9 MMOL/L (3.5-5.1); SODIUM 134 MMOL/L (135-145); TOTAL CARBON DIOXIDE 22.3 MMOL/L (24-32); eGFR 39 ML/MIN
--- NOTE | 2020-03-01 06:21 | NUR ---
Problems reprioritized. Patient report given, questions answered & plan of care reviewed with Kay WRIGHT.
[2020-03-01] MEDS: piperacillin/tazo 3.375gm/50ml 50 ML IV SCH ×3 (06:32→22:00)
--- NOTE | 2020-03-01 06:54 | NUR ---
Patient in room PCU 3024. I have received report from Teodoro WRIGHT and had the opportunity to ask questions and assume patient care.
[2020-03-01] MEDS: amLODIPine 5mg tablet PO SCH (07:20)
[2020-03-01] MEDS: sodium bicarbonate (8.4%) inj. 50 MEQ in dextrose 5%-water 1,000 ML IV SCH ×3 (07:28→19:46)
[2020-03-01] MEDS: pantoprazole 40mg Tablet.DR PO SCH (07:35)
[2020-03-01] MEDS: sertraline 50mg tablet PO SCH (07:35)
[2020-03-01] MEDS: metFORMIN 500mg tablet PO SCH ×2 (07:36→19:16)
[2020-03-01] MEDS: HYDROmorphone 1 mg/ml syringe IV PRN ×3 (07:41→16:59)
[2020-03-01] MEDS: ondansetron/PF 4mg/2ml inj IV PRN ×2 (12:42→19:16)
--- NOTE | 2020-03-01 17:36 | NUR ---
Patient requested zofran but was too close to the last time the medication was given.
--- NOTE | 2020-03-01 18:29 | NUR ---
Problems reprioritized. Patient report given, questions answered & plan of care reviewed with Lesley WRIGHT.
--- NOTE | 2020-03-01 18:41 | NUR ---
Patient in room PCU 3024. I have received report from Josr WRIGHT and had the opportunity to ask questions and assume patient care.
[2020-03-01] MEDS: lactobacillus rhamnosus 10,000 MMU CELLS/CAPSULE PO SCH (19:15)
[2020-03-01] MEDS: oxyCODONE/APAP 10/325mg tablet PO PRN (23:28)
[2020-03-02 02:00] VITALS: BP 104/77
--- NOTE | 2020-03-02 03:29 | NUR ---
MESSAGE: re: Kelvin Guajardo rm [id number]: Zofran isn't working for pts nausea, can we get a different nausea med, Thank you
[2020-03-02] MEDS ORDERED: proCHLORperazine 10 MG/2 ml inj IV PRN (03:30)
[2020-03-02] MEDS: piperacillin/tazo 3.375gm/50ml 50 ML IV SCH ×3 (05:43→22:18)
[2020-03-02] MEDS: sodium bicarbonate (8.4%) inj. 50 MEQ in dextrose 5%-water 1,000 ML IV SCH (05:58)
[2020-03-02 06:12] LABS: BASOPHILS % (AUTO) 0.1 % (0-1); EOSINOPHILS % (AUTO) 0.2 % (0-6); HEMATOCRIT 26.8 % (42.0-52.0); HEMOGLOBIN 8.8 g/dl (14.0-17.9); LYMPHOCYTES # (AUTO) 0.7 X10'3 (1.1-4.8); MEAN CORPUSCULAR HEMOGLOBIN 26.1 PG (27.0-31.0); MEAN CORPUSCULAR HGB CONC 32.8 g/dL (33.0-36.5); MEAN CORPUSCULAR VOLUME 79.7 FL (78-98); MEAN PLATELET VOLUME 7.4 FL (7.4-10.4); MONOCYTES # (AUTO) 0.8 X10'3 (0-0.9); MONOCYTES % (AUTO) 5.3 % (2-12); NEUTROPHILS # (AUTO) 13.1 X10'3 (1.8-7.7); NEUTROPHILS % (AUTO) 89.4 % (42-75); PLATELET COUNT 193 X10'3 (140-440); RED BLOOD COUNT 3.37 X10'6 (4.70-6.10); RED CELL DISTRIBUTION WIDTH 15.8 % (11.5-14.5); WHITE BLOOD COUNT 14.7 X10'3 (4.5-11.0)
[2020-03-02 06:26] LABS: ALANINE AMINOTRANSFERASE 14 U/L (12-78); ALBUMIN 2.6 G/DL (3.4-5.0); ALBUMIN/GLOBULIN RATIO 0.7 (1.1-1.5); ALKALINE PHOSPHATASE 50 IU/L (46-116); ANION GAP 4 (8-16); ASPARTATE AMINO TRANSFERASE 7 U/L (10-37); BILIRUBIN,TOTAL 0.6 MG/DL (0.1-1.0); BLOOD UREA NITROGEN 13 MG/DL (7-18); BUN/CREATININE RATIO 13.3 (5.4-32.0); CALCIUM 8.9 MG/DL (8.5-10.1); CHLORIDE 102 MMOL/L (99-107); CREATININE 0.98 MG/DL (0.60-1.10); GLUCOSE 131 MG/DL (70-104); POTASSIUM 3.4 MMOL/L (3.5-5.1); SODIUM 136 MMOL/L (135-145); TOTAL CARBON DIOXIDE 29.8 MMOL/L (24-32); TOTAL PROTEIN 6.2 G/DL (6.4-8.2); eGFR 83 ML/MIN
--- NOTE | 2020-03-02 06:45 | NUR ---
Problems reprioritized. Patient report given, questions answered & plan of care reviewed with Ana WRIGHT.
[2020-03-02 07:00] VITALS: BP 113/84
[2020-03-02 07:46] LABS: ANISOCYTOSIS 1+; MICROCYTOSIS 1+; PLATELET ESTIMATE NORMAL; TOTAL CELLS COUNTED 100
[2020-03-02] MEDS: sertraline 50mg tablet PO SCH (08:00)
[2020-03-02] MEDS: pantoprazole 40mg Tablet.DR PO SCH (08:00)
[2020-03-02] MEDS: lactobacillus rhamnosus 10,000 MMU CELLS/CAPSULE PO SCH ×2 (08:00→19:10)
[2020-03-02] MEDS: amLODIPine 5mg tablet PO SCH (08:00)
[2020-03-02] MEDS: metFORMIN 500mg tablet PO SCH ×2 (08:00→19:10)
[2020-03-02] MEDS: ondansetron/PF 4mg/2ml inj IV PRN (08:06)
[2020-03-02] MEDS: HYDROmorphone 1 mg/ml syringe IV PRN (08:06)
--- NOTE | 2020-03-02 09:39 | NUR ---
PAGED DR MENDEZ RE: PAGER ID: [phone] MESSAGE: JUNG CALLOWAY. + BLOOD CULTURE. GRAM POSITIVE COCCI IN CLUSTERS, ANAEROBIC, L HAND. U ANDRÉS [id number]
[2020-03-02 11:00] VITALS: BP 112/79
--- NOTE | 2020-03-02 12:44 | NUR ---
PT REFUSING TO GET UP OUT OF BED, EDUCATED PT ON THE IMPORTANCE OF GETTING OUT OF BED AND MOVING AROUND. PT STATES THAT HE WILL TRY LATER.
[2020-03-02 16:15] VITALS: BP 116/81
[2020-03-02 18:00] VITALS: BP 113/79
--- NOTE | 2020-03-02 18:12 | NUR ---
Problems reprioritized. Patient report given, questions answered & plan of care reviewed with SHIMON WRIGHT.
--- NOTE | 2020-03-02 18:40 | NUR ---
Patient in room PCU 3024. I have received report from ADRIANA Perez and had the opportunity to ask questions and assume patient care. Safety measures in place, bed in low and locked position. Call light and personal items within reach. Bed alarm on. Will continue to monitor throughout shift.
[2020-03-02] MEDS: oxyCODONE/APAP 10/325mg tablet PO PRN (19:11)
--- NOTE | 2020-03-02 21:03 | NUR ---
Paged Dr. Bains RE: NENA CALLOWAY RM [id number] Patient had colostomy/stoma repair on 02/28/20. Low output in colostomy. New onset today firm, tender, and distended on side of colostomy. WBC 14.7. Any orders? Johan 0346
[2020-03-02 22:00] VITALS: BP 114/86
--- NOTE | 2020-03-03 05:08 | NUR ---
Called Dr. Amaral regarding low output from stoma, and a presentation of firm, painful, distention with pain and Addendum: 03/03/20 at 0512 by Johan Justice RN Called Dr. Amaral regarding low output from stoma, and a presentation of firm, painful, distended lateral area of the abdomen, toward the posterior below the colostomy. Dr. Amaral recommended irrigation, however, as attempting to irrigate, patient filled colostomy with large bowel movement presenting with a small amount of marla blood. Will continue to monitor for remainder of shift.
[2020-03-03 05:59] LABS: BASOPHILS % (AUTO) 0.1 % (0-1); EOSINOPHILS % (AUTO) 0.3 % (0-6); HEMATOCRIT 26.3 % (42.0-52.0); HEMOGLOBIN 8.8 g/dl (14.0-17.9); LYMPHOCYTES # (AUTO) 0.9 X10'3 (1.1-4.8); MEAN CORPUSCULAR HEMOGLOBIN 26.4 PG (27.0-31.0); MEAN CORPUSCULAR HGB CONC 33.5 g/dL (33.0-36.5); MEAN CORPUSCULAR VOLUME 78.7 FL (78-98); MEAN PLATELET VOLUME 7.3 FL (7.4-10.4); MONOCYTES # (AUTO) 0.6 X10'3 (0-0.9); MONOCYTES % (AUTO) 4.5 % (2-12); NEUTROPHILS # (AUTO) 11.8 X10'3 (1.8-7.7); NEUTROPHILS % (AUTO) 88.1 % (42-75); PLATELET COUNT 230 X10'3 (140-440); RED BLOOD COUNT 3.34 X10'6 (4.70-6.10); RED CELL DISTRIBUTION WIDTH 15.8 % (11.5-14.5); WHITE BLOOD COUNT 13.4 X10'3 (4.5-11.0)
[2020-03-03] MEDS: piperacillin/tazo 3.375gm/50ml 50 ML IV SCH ×3 (05:59→21:34)
[2020-03-03 06:10] VITALS: BP 105/71
[2020-03-03 06:22] LABS: ALANINE AMINOTRANSFERASE 13 U/L (12-78); ALBUMIN 2.5 G/DL (3.4-5.0); ALBUMIN/GLOBULIN RATIO 0.6 (1.1-1.5); ALKALINE PHOSPHATASE 72 IU/L (46-116); ANION GAP 9 (8-16); ASPARTATE AMINO TRANSFERASE 9 U/L (10-37); BILIRUBIN,TOTAL 0.6 MG/DL (0.1-1.0); BLOOD UREA NITROGEN 11 MG/DL (7-18); BUN/CREATININE RATIO 12.6 (5.4-32.0); CALCIUM 8.5 MG/DL (8.5-10.1); CHLORIDE 101 MMOL/L (99-107); CREATININE 0.87 MG/DL (0.60-1.10); GLUCOSE 97 MG/DL (70-104); POTASSIUM 3.2 MMOL/L (3.5-5.1); SODIUM 138 MMOL/L (135-145); TOTAL CARBON DIOXIDE 28.3 MMOL/L (24-32); TOTAL PROTEIN 6.4 G/DL (6.4-8.2); eGFR > 90 ML/MIN
--- NOTE | 2020-03-03 06:35 | NUR ---
Patient in room PCU 3024. I have received report from Johan WRIGHT and had the opportunity to ask questions and assume patient care.
--- NOTE | 2020-03-03 06:44 | NUR ---
Problems reprioritized. Patient report given, questions answered & plan of care reviewed with ADRIANA Mercado. Medications administered as ordered. Care plan followed. Safety measures in place, bed in low and locked postiion. Call light and personal items within reach. Will continue to monitor for remainder of shift.
[2020-03-03] MEDS: metFORMIN 500mg tablet PO SCH ×2 (07:24→20:31)
[2020-03-03] MEDS: lactobacillus rhamnosus 10,000 MMU CELLS/CAPSULE PO SCH ×2 (07:25→20:30)
[2020-03-03] MEDS: pantoprazole 40mg Tablet.DR PO SCH (07:25)
[2020-03-03] MEDS: amLODIPine 5mg tablet PO SCH (07:25)
[2020-03-03] MEDS: sertraline 50mg tablet PO SCH (07:25)
[2020-03-03] MEDS ORDERED: magnesium 4gm in 100ml NS 100 ML IV PRN (09:25)
[2020-03-03] MEDS ORDERED: magnesium Cl slow-release 64mg tablet PO PRN (09:25)
[2020-03-03] MEDS ORDERED: potassium Cl 20 mEq SR tablet PO PRN (09:25)
[2020-03-03] MEDS: oxyCODONE/APAP 10/325mg tablet PO PRN (10:05)
[2020-03-03 11:00] VITALS: BP 114/83
--- NOTE | 2020-03-03 11:32 | NUR ---
Initial: Pt admit for stoma revision, completed on 02/27. Pt initially on a heart healthy diet documented with 75-100% PO intake meeting estimated nutrient needs. PO diet was changed to clear liquids post-op and pt documented with 0-25% PO intake, likely r/t N/V with abdominal pain. PO diet has just been advanced to regular, pending PO intake of first meal since diet advancement. Pt with no N/V per MD note 03/02. Hopeful for improvement in PO intake with improvement of GI symptoms. LBM 03/03. Will continue to follow closely and monitor need for nutrition intervention pending trends in PO intake. Recommendations: 1) Continue regular diet 2) Monitor need for ONS 3) Bowel care per rx 4) Scaled weights per rx Addendum: 03/03/20 at [address] Amended: Links added.
[2020-03-03] MEDS: potassium Cl 40MEQ/1/2NS 520ml 520 ML IV PRN ×2 (11:38→13:53)
[2020-03-03] MEDS: potassium Cl 20 mEq SR tablet PO PRN ×2 (13:51→20:31)
[2020-03-03 15:00] VITALS: BP 106/81
[2020-03-03 18:00] VITALS: BP 123/87
--- NOTE | 2020-03-03 18:38 | NUR ---
Patient in room PCU 3024. I have received report from Jess WRIGHT and had the opportunity to ask questions and assume patient care.
--- NOTE | 2020-03-03 18:42 | NUR ---
Problems reprioritized. Patient report given, questions answered & plan of care reviewed with Amauri WRIGHT.
[2020-03-03] MEDS: K and/or MAG REPLACEMENT MC SCH (20:00)
[2020-03-03] MEDS: apixaban 5mg tablet PO SCH (20:30)
[2020-03-03] MEDS: HYDROmorphone inj. 0.5 MG/0.5 ML DISP.SYRIN IV PRN (20:37)
[2020-03-03 22:00] VITALS: BP 114/85
[2020-03-04] MEDS: HYDROmorphone inj. 0.5 MG/0.5 ML DISP.SYRIN IV PRN (01:38)
[2020-03-04 02:00] VITALS: BP 121/85
[2020-03-04] MEDS: potassium Cl 20 mEq SR tablet PO PRN (03:32)
[2020-03-04] MEDS: piperacillin/tazo 3.375gm/50ml 50 ML IV SCH ×3 (05:37→21:24)
[2020-03-04 05:44] LABS: BASOPHILS % (AUTO) 0.4 % (0-1); EOSINOPHILS % (AUTO) 0.4 % (0-6); HEMOGLOBIN 9.3 g/dl (14.0-17.9); LYMPHOCYTES % (AUTO) 10.3 % (21-51); MEAN CORPUSCULAR HEMOGLOBIN 26.4 PG (27.0-31.0); MEAN CORPUSCULAR HGB CONC 33.2 g/dL (33.0-36.5); MEAN CORPUSCULAR VOLUME 79.6 FL (78-98); MEAN PLATELET VOLUME 7.1 FL (7.4-10.4); MONOCYTES # (AUTO) 0.7 X10'3 (0-0.9); NEUTROPHILS # (AUTO) 8.1 X10'3 (1.8-7.7); NEUTROPHILS % (AUTO) 81.9 % (42-75); PLATELET COUNT 239 X10'3 (140-440); RED BLOOD COUNT 3.51 X10'6 (4.70-6.10); RED CELL DISTRIBUTION WIDTH 15.7 % (11.5-14.5); WHITE BLOOD COUNT 9.9 X10'3 (4.5-11.0)
[2020-03-04 06:00] VITALS: BP 114/87
[2020-03-04 06:08] LABS: ALANINE AMINOTRANSFERASE 13 U/L (12-78); ALBUMIN 2.4 G/DL (3.4-5.0); ALBUMIN/GLOBULIN RATIO 0.6 (1.1-1.5); ALKALINE PHOSPHATASE 55 IU/L (46-116); ANION GAP 7 (8-16); ASPARTATE AMINO TRANSFERASE 10 U/L (10-37); BILIRUBIN,TOTAL 0.5 MG/DL (0.1-1.0); BLOOD UREA NITROGEN 14 MG/DL (7-18); BUN/CREATININE RATIO 16.7 (5.4-32.0); CALCIUM 8.5 MG/DL (8.5-10.1); CHLORIDE 104 MMOL/L (99-107); CREATININE 0.84 MG/DL (0.60-1.10); GLUCOSE 88 MG/DL (70-104); POTASSIUM 3.6 MMOL/L (3.5-5.1); SODIUM 139 MMOL/L (135-145); TOTAL CARBON DIOXIDE 27.8 MMOL/L (24-32); TOTAL PROTEIN 6.6 G/DL (6.4-8.2); eGFR > 90 ML/MIN
--- NOTE | 2020-03-04 06:33 | NUR ---
Problems reprioritized. Patient report given, questions answered & plan of care reviewed with Ritika WRIGHT.
--- NOTE | 2020-03-04 06:36 | NUR ---
Patient in room PCU 3024. I have received report from Evangelista WRIGHT and had the opportunity to ask questions and assume patient care.
[2020-03-04] MEDS: amLODIPine 5mg tablet PO SCH (08:25)
[2020-03-04] MEDS: metFORMIN 500mg tablet PO SCH ×2 (08:26→19:36)
[2020-03-04] MEDS: lactobacillus rhamnosus 10,000 MMU CELLS/CAPSULE PO SCH ×2 (08:26→19:35)
[2020-03-04] MEDS: pantoprazole 40mg Tablet.DR PO SCH (08:26)
[2020-03-04] MEDS: apixaban 5mg tablet PO SCH ×2 (08:26→19:36)
[2020-03-04] MEDS: sertraline 50mg tablet PO SCH (08:26)
[2020-03-04] MEDS: oxyCODONE/APAP 10/325mg tablet PO PRN (08:28)
[2020-03-04] MEDS: K and/or MAG REPLACEMENT MC SCH ×2 (08:29→19:45)
[2020-03-04 11:51] VITALS: BP 130/91
[2020-03-04] MEDS: HYDROmorphone 1 mg/ml syringe IV PRN ×3 (11:58→23:11)
--- NOTE | 2020-03-04 14:42 | NUR ---
Patient able to self adjust. Encouraged to do so. Addendum: 03/04/20 at 1444 by Ritika Thorpe RN Amended: Links added.
[2020-03-04 15:29] VITALS: BP 123/90
--- NOTE | 2020-03-04 16:42 | NUR ---
patient able to reposition self. Addendum: 03/04/20 at 1642 by Ritika Thorpe RN Amended: Links added.
[2020-03-04 18:00] VITALS: BP 128/94
--- NOTE | 2020-03-04 18:15 | NUR ---
Patient in room PCU 3024. I have received report from Ritika WRIGHT and had the opportunity to ask questions and assume patient care.
--- NOTE | 2020-03-04 18:18 | NUR ---
Problems reprioritized. Patient report given, questions answered & plan of care reviewed with Evangelista WRIGHT.
[2020-03-04 22:00] VITALS: BP 125/93
[2020-03-05 02:00] VITALS: BP 119/92
[2020-03-05] MEDS: piperacillin/tazo 3.375gm/50ml 50 ML IV SCH ×2 (05:20→13:19)
[2020-03-05 06:26] LABS: BASOPHILS % (AUTO) 0.5 % (0-1); EOSINOPHILS # (AUTO) 0.1 X10'3 (0-0.9); EOSINOPHILS % (AUTO) 0.6 % (0-6); HEMATOCRIT 29.9 % (42.0-52.0); LYMPHOCYTES # (AUTO) 1.3 X10'3 (1.1-4.8); LYMPHOCYTES % (AUTO) 14.8 % (21-51); MEAN CORPUSCULAR HEMOGLOBIN 26.6 PG (27.0-31.0); MEAN CORPUSCULAR HGB CONC 33.3 g/dL (33.0-36.5); MEAN CORPUSCULAR VOLUME 79.9 FL (78-98); MONOCYTES # (AUTO) 0.9 X10'3 (0-0.9); MONOCYTES % (AUTO) 10.1 % (2-12); NEUTROPHILS # (AUTO) 6.5 X10'3 (1.8-7.7); PLATELET COUNT 288 X10'3 (140-440); RED BLOOD COUNT 3.74 X10'6 (4.70-6.10); RED CELL DISTRIBUTION WIDTH 15.8 % (11.5-14.5); WHITE BLOOD COUNT 8.7 X10'3 (4.5-11.0)
[2020-03-05 06:31] LABS: ALANINE AMINOTRANSFERASE 11 U/L (12-78); ALBUMIN 2.5 G/DL (3.4-5.0); ALBUMIN/GLOBULIN RATIO 0.6 (1.1-1.5); ALKALINE PHOSPHATASE 52 IU/L (46-116); ANION GAP 12 (8-16); ASPARTATE AMINO TRANSFERASE 11 U/L (10-37); BILIRUBIN,TOTAL 0.6 MG/DL (0.1-1.0); BLOOD UREA NITROGEN 12 MG/DL (7-18); BUN/CREATININE RATIO 17.1 (5.4-32.0); CALCIUM 8.4 MG/DL (8.5-10.1); CHLORIDE 103 MMOL/L (99-107); GLUCOSE 71 MG/DL (70-104); POTASSIUM 3.8 MMOL/L (3.5-5.1); SODIUM 138 MMOL/L (135-145); TOTAL CARBON DIOXIDE 23.3 MMOL/L (24-32); TOTAL PROTEIN 6.9 G/DL (6.4-8.2); eGFR > 90 ML/MIN
--- NOTE | 2020-03-05 06:33 | NUR ---
Problems reprioritized. Patient report given, questions answered & plan of care reviewed with Mauricio WRIGHT.
--- NOTE | 2020-03-05 06:39 | NUR ---
Patient in room PCU 3024. I have received report from ADRIANA Naidu and had the opportunity to ask questions and assume patient care.
[2020-03-05 06:58] VITALS: BP 134/96
[2020-03-05] MEDS: K and/or MAG REPLACEMENT MC SCH (08:00)
[2020-03-05] MEDS: metFORMIN 500mg tablet PO SCH (08:10)
[2020-03-05] MEDS: apixaban 5mg tablet PO SCH (08:10)
[2020-03-05] MEDS: amLODIPine 5mg tablet PO SCH (08:10)
[2020-03-05] MEDS: sertraline 50mg tablet PO SCH (08:10)
[2020-03-05] MEDS: pantoprazole 40mg Tablet.DR PO SCH (08:10)
[2020-03-05] MEDS: lactobacillus rhamnosus 10,000 MMU CELLS/CAPSULE PO SCH (08:10)
[2020-03-05] MEDS: HYDROmorphone 1 mg/ml syringe IV PRN (08:11)
[2020-03-05] MEDS: ondansetron/PF 4mg/2ml inj IV PRN (08:15)
--- NOTE | 2020-03-05 09:42 | NUR ---
Problems reprioritized. Patient report given, questions answered & plan of care reviewed with ADRIANA Yost.
--- NOTE | 2020-03-05 09:47 | NUR ---
Patient in room PCU 3024. I have received report from Mauricio WRIGHT and had the opportunity to ask questions and assume patient care.
--- NOTE | 2020-03-05 10:03 | NUR ---
Patient transferred to room 354c in wheelchair with all belongings.
[2020-03-05] MEDS ORDERED: oxyCODONE/APAP 10/325mg tablet PO PRN (10:35)
[2020-03-05 11:00] VITALS: BP 114/83
--- NOTE | 2020-03-05 11:45 | NUR ---
PAGER ID: [phone] MESSAGE: [phone] I think he is ready to DC. His can be here around 1730 this evening. They live in [place]. Ritika [phone]
[2020-03-05] MEDS ORDERED: OXYC1TAB17 PO (11:56)
[2020-03-05] MEDS ORDERED: AMOX-422 PO (11:56)
--- NOTE | 2020-03-05 12:30 | NUR ---
Patient to be discharged. Patient and live in [place], 1.5 to 2 hours away. Shanika will not be able to last picker patient until approx 1730 to 1800.
--- NOTE | 2020-03-05 15:45 | NUR ---
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 She will arrived in about 1.5 hours. Paperwork is completed and signed. Patients IVs have been removed. Patient will be dressing himself. New pain scrip has been given to patient. Education has been completed on discharge with verbal acknowledgement of understanding. Patient already has supplies for his colostomy and does selfcare. A&Ox4, VS stable.
== END 2020-03-05 16:54 | disposition home health service (06) | DRG 329 ==
LOC: WOUND CARE 11:32 → UNDOADMIN 13:59 → SUR 3N 13:59 → PCU 3S 02-29 21:41 → SUR 3N 03-05 10:00
PROVIDERS: ADMIT Family Medicine; ATTEND Family Medicine
PROC: 0DNW0ZZ Release Peritoneum, Open Approach (ICD-10-PCS; 2020-02-28)
PROC: 0DBL0ZZ Excision of Transverse Colon, Open Approach (ICD-10-PCS; principal; 2020-02-28 10:10)
DX: Z43.3 Encounter for attention to colostomy (principal); J69.0 Pneumonitis due to inhalation of food and vomit; N17.0 Acute kidney failure with tubular necrosis; E11.9 Type 2 diabetes mellitus without complications; E78.5 Hyperlipidemia, unspecified; E87.5 Hyperkalemia; Z20.828 Contact with and (suspected) exposure to other viral communicable diseases; I10 Essential (primary) hypertension; K66.0 Peritoneal adhesions (postprocedural) (postinfection); R09.02 Hypoxemia; Z86.711 Personal history of pulmonary embolism; E87.6 Hypokalemia
CPT/HCPCS: Z7506; Z7508; 36415; 71045; 80053; 82948; 83605; 85007; 85025; 85610; 87040; 87077; 87081; 87186; 87635; 93005; 97116; 97161; 97530; 97597; A4421; A4618; A6449; A7000; C1758; G0378; J0131; J0694; J0780; J1100; J1170; J1644; J1885; J1940; J2001; J2250; J2270; J2405; J2543; J2704; J2710; J3010; J3480; J3490; J7030; J7040; J7120

== ENCOUNTER 2020-03-19 10:28 | Outpatient (CLI) | payer BC ==
[~2020-03-19 10:28] MED LIST changes: +AMOX-422 PO; -CIPR500T5 PO; -HYDR-3686 PO; -METF-436 PO; +METF-880 PO; -METR-159 PO; +OXYC1TAB17 PO; -PANT-47 PO; +PANT40TA54 PO; -ROSU5TAB12 PO; -SENN-145 PO
[2020-03-19] MEDS ORDERED: LIDOcaine 2% 5ml jelly ONE (10:42)
[2020-03-19] MEDS ORDERED: dextrose ORAL solution 15 GM/59 ML bottle ONE (11:03)
== END 2020-03-19 23:59 | disposition home or self-care (01) ==
LOC: WOUND CARE 10:28
PROVIDERS: ATTEND Nurse Practitioner
DX: T81.89XD Other complications of procedures, not elsewhere classified, subsequent encounter (principal); E11.622 Type 2 diabetes mellitus with other skin ulcer; L98.492 Non-pressure chronic ulcer of skin of other sites with fat layer exposed; E11.65 Type 2 diabetes mellitus with hyperglycemia; I10 Essential (primary) hypertension; L84 Corns and callosities; K21.9 Gastro-esophageal reflux disease without esophagitis; E78.5 Hyperlipidemia, unspecified; E87.6 Hypokalemia; F32.9 Major depressive disorder, single episode, unspecified; Z86.711 Personal history of pulmonary embolism; Z79.84 Long term (current) use of oral hypoglycemic drugs; Z79.01 Long term (current) use of anticoagulants; Z79.899 Other long term (current) drug therapy; Y83.8 Other surgical procedures as the cause of abnormal reaction of the patient, or of later complication, without mention of misadventure at the time of the procedure
CPT/HCPCS: 82948; 97597

== ENCOUNTER 2020-03-27 12:28 | Outpatient (CLI) | payer BC ==
[2020-03-27] MEDS ORDERED: LIDOcaine 2% 5ml jelly ONE (13:41)
== END 2020-03-27 23:59 | disposition home or self-care (01) ==
LOC: WOUND CARE 12:28
PROVIDERS: ATTEND Nurse Practitioner Family
DX: T81.89XD Other complications of procedures, not elsewhere classified, subsequent encounter (principal); E11.622 Type 2 diabetes mellitus with other skin ulcer; L98.492 Non-pressure chronic ulcer of skin of other sites with fat layer exposed; E11.65 Type 2 diabetes mellitus with hyperglycemia; I10 Essential (primary) hypertension; L84 Corns and callosities; K21.9 Gastro-esophageal reflux disease without esophagitis; E78.5 Hyperlipidemia, unspecified; E87.6 Hypokalemia; F32.9 Major depressive disorder, single episode, unspecified; Z86.711 Personal history of pulmonary embolism; Z79.84 Long term (current) use of oral hypoglycemic drugs; Z79.01 Long term (current) use of anticoagulants; Z79.899 Other long term (current) drug therapy; Y83.8 Other surgical procedures as the cause of abnormal reaction of the patient, or of later complication, without mention of misadventure at the time of the procedure
CPT/HCPCS: G0463

== ENCOUNTER 2020-04-25 06:26 | Inpatient (IN) | payer BC, MEDICAID ==
[2020-04-19 15:59] LABS: BASOPHILS # (AUTO) 0.1 X10'3 (0-0.2); BASOPHILS % (AUTO) 1.2 % (0-1); EOSINOPHILS # (AUTO) 0.4 X10'3 (0-0.9); EOSINOPHILS % (AUTO) 5.7 % (0-6); LYMPHOCYTES # (AUTO) 2.2 X10'3 (1.1-4.8); LYMPHOCYTES % (AUTO) 29.8 % (21-51); MEAN CORPUSCULAR HEMOGLOBIN 25.8 PG (27.0-31.0); MEAN CORPUSCULAR HGB CONC 32.8 g/dL (33.0-36.5); MEAN CORPUSCULAR VOLUME 78.5 FL (78-98); MONOCYTES # (AUTO) 0.5 X10'3 (0-0.9); MONOCYTES % (AUTO) 7.2 % (2-12); NEUTROPHILS # (AUTO) 4.1 X10'3 (1.8-7.7); NEUTROPHILS % (AUTO) 56.1 % (42-75); PRE OP HEMATOCRIT 40.7 % (42.0-52.0); PRE OP HEMOGLOBIN 13.4 g/dL (14.0-17.9); PRE OP PLATELET COUNT 262 X10'3 (140-440); RED BLOOD COUNT 5.18 X10'6 (4.70-6.10); RED CELL DISTRIBUTION WIDTH 16.4 % (11.5-14.5)
[2020-04-19 16:14] LABS: HEMOGLOBIN A1C 5.3 % (4.5-6.2)
[2020-04-19 16:15] LABS: ALBUMIN 4.2 G/DL (3.4-5.0); ALKALINE PHOSPHATASE 72 IU/L (46-116); BLOOD UREA NITROGEN 15 MG/DL (7-18); BUN/CREATININE RATIO 14.4 (5.4-32.0); CALCIUM 9.3 MG/DL (8.5-10.1); CHLORIDE 104 MMOL/L (99-107); CREATININE 1.04 MG/DL (0.60-1.10); PRE OP ALT 24 U/L (30-65); PRE OP ANION GAP 10 (8-16); PRE OP AST 21 U/L (10-37); PRE OP BILIRUB, TOTAL 0.3 MG/DL (0.0-1.0); PRE OP GLUCOSE 141 MG/DL (70-104); PRE OP POTASSIUM 4.1 MMOL/L (3.4-5.1); PRE OP SODIUM 142 MMOL/L (135-145); TOTAL CARBON DIOXIDE 28.4 MMOL/L (24-32); TOTAL PROTEIN 8.6 G/DL (6.4-8.2); eGFR 78 ML/MIN
[2020-04-19 16:18] LABS: CLARITY,URINE CLEAR (Clear); COLOR,URINE YELLOW (Yellow); GLUCOSE, URINE NEGATIVE (Neg); KETONES,URINE NEGATIVE (Neg); LEUKOCYTE ESTERASE ,URINE NEGATIVE (Neg); NITRITES, URINE NEGATIVE (Neg); OCCULT BLOOD,URINE NEGATIVE (Neg); PH,URINE 5.5 (4.8-8.0); PROTEIN,URINE NEGATIVE (Neg); UROBILINOGEN,URINE 0.2 E.U/dL (0.2-1.0)
[2020-04-19 16:34] LABS: UA COLLECTION TYPE CLN CATCH MIDSTREAM
[2020-04-25] VITALS (19 sets, daily range): BP systolic 120–148; BP diastolic 86–101
[~2020-04-25] VITALS: Ht 193 cm; Wt 87.6 kg
[~2020-04-25 06:26] MED LIST changes: -AMOX-422 PO; -OXYC1TAB17 PO; -PANT40TA54 PO; -POTA20TA19 PO; +ceFOXitin 2GM-NS 100mL ADDvant 100 ML IV ONE; +famotidine 20mg tablet PO ONE; +ringers solution, lacted 1,000 ML IV SCH
[2020-04-25] MEDS ORDERED: ROSU5TAB12 PO (07:05)
[2020-04-25] MEDS ORDERED: PANT40TA54 PO (07:05)
[2020-04-25] MEDS ORDERED: fentaNYL/PF 50MCG/1 ML 2ML syringe ONE (08:23)
[2020-04-25] MEDS ORDERED: midazolam 2 mg/2 ml injection ONE ×2 (08:24→13:42)
[2020-04-25] MEDS ORDERED: glycopyrrolate 0.2mg/ml inj ONE ×2 (08:25→14:26)
[2020-04-25] MEDS ORDERED: rocuronium 10mg/ml inj IV ONE ×4 (08:25→14:26)
[2020-04-25] MEDS ORDERED: ondansetron/PF 4mg/2ml inj ONE ×2 (08:25→14:26)
[2020-04-25] MEDS ORDERED: neostigmine methylsulfate 1 MG/ML 10ml vial ONE ×2 (08:25→14:26)
[2020-04-25] MEDS ORDERED: LIDOcaine 2% (20mg/ml) 5ml vial ONE ×3 (08:25→14:26)
[2020-04-25] MEDS ORDERED: propofol inj 20 ML IV ONE ×3 (08:25→14:26)
[2020-04-25] MEDS ORDERED: dexamethasone sod phosphate 4mg/ml inj. ONE ×2 (08:25→14:26)
[2020-04-25] MEDS ORDERED: labetalol 20mg/4ml (5mg/ml) syringe IV ONE (10:50)
[2020-04-25] MEDS ORDERED: iohexol 300 MG/1 ML 50ml polymer ONE (11:34)
[2020-04-25] MEDS ORDERED: meperidine/PF 25mg/ml syringe IV ONE (13:05)
[2020-04-25] MEDS ORDERED: sevoflurane 250ml liquid IH ONE (13:38)
[2020-04-25] MEDS ORDERED: fentaNYL /PF 50mcg/ml 5ml ampule ONE (14:26)
[2020-04-25] MEDS ORDERED: proCHLORperazine 10 MG/2 ml inj IV PRN (15:05)
[2020-04-25] MEDS ORDERED: morphine 4 MG/ML inj SYRINge IV PRN (15:05)
[2020-04-25] MEDS ORDERED: ondansetron/PF 4mg/2ml inj IV PRN (15:05)
[2020-04-25] MEDS ORDERED: ringers solution, lacted 1,000 ML IV SCH (15:05)
[2020-04-25] MEDS ORDERED: morphine 2 MG/ML inj. syringe IV PRN (15:05)
[2020-04-25] MEDS ORDERED: meperidine/PF 25mg/ml syringe IV PRN ×2 (15:05)
[2020-04-25] MEDS ORDERED: meperidine/PF 50mg/ml syringe ONE (15:48)
[2020-04-25] MEDS ORDERED: acetaminophen 1,000mg/100ml IV 100 ML IV ONE (15:55)
--- NOTE | 2020-04-25 16:14 | NUR ---
Received from OR via SURGICAL BED , accompanied by Anesthesiologist CONNER and report given by Anesthesiolgist. PATIENT WITH 20G PIV IN RIGHT UE RUNNING LR AT 100. ONE PIECE WOUND VAC TO ABDOMEN THAT HAS NO LEAKS RUNNING AT 125 MM HGNO DRAINAGE PRESENT IN ATRIUM. VSS. SCDS DONNED. FOLEYH CATHETER WITH BLOODY URINE 300 PRESENT. Addendum: 04/25/20 at 1630 by Lalo Bravo RN, RN Amended: Links added.
[2020-04-25] MEDS ORDERED: oxyCODONE/APAP 10/325mg tablet PO PRN (16:40)
[2020-04-25] MEDS: meperidine/PF 25mg/ml syringe IV PRN ×2 (16:55→17:06)
--- NOTE | 2020-04-25 17:05 | NUR ---
RECEIVED REPORT FROM ADRIANA DENNEY. AWAITING PATIENT ARRIVAL.
[2020-04-25] MEDS: potassium CL 20mEq in D5-1/2NS 1,000 ML IV SCH ×2 (17:15→21:25)
[2020-04-25] MEDS ORDERED: naloxone 0.4 mg/ml inj IV PRN ×2 (17:15→17:30)
[2020-04-25] MEDS ORDERED: CADD PCA waste documentation MC PRN ×2 (17:15→17:30)
--- NOTE | 2020-04-25 17:24 | NUR ---
ALL CRITERIA FOR TRANSFER TO THE FLOOR HAS BEEN ACHIEVED. REPORT GIVEN AND ALL QUESTIONS ANSWERED, VSS. BED LOW 2 RAILS UP, CALL LIGHT PRESENT AND PATIENT HOOKED UP TO ALL LINES AND VSS. PATIENTS RN PRESENT TO ACCEPT CARE. ADRIANA BARKER PRESENT TO ACCEPT PATIENT AND ASSESS WOUND SITE TO ABDOMEN. PATIENT CADD ORDERS IN AN I CALLED PHARMACY TO DELIVER CASETTE TO [facility] ON SURGICAL. PATIENTS PAIN AT A TOLERABLE LEVEL UPON DELIVERY TO SURGICAL. PATIENT CARE ACCEPTED BY ADRIANA BARKER. Addendum: 04/25/20 at 1751 by Lalo Hines - ADRIANA WRIGHT Amended: Links added.
--- NOTE | 2020-04-25 17:45 | NUR ---
patient arrived to floor. VSS. no complaints.
--- NOTE | 2020-04-25 18:18 | NUR ---
Problems reprioritized. Patient report given, questions answered & plan of care reviewed with HUMBERTO Cohn RN.
--- NOTE | 2020-04-25 18:18 | NUR ---
Patient in room [facility] 344. I have received report from ADRIANA Gillette and had the opportunity to ask questions and assume patient care.
[2020-04-25] MEDS: HYDROmorphone/NS 1 mg/ml CADD 50 ML IV SCH ×4 (18:27→23:00)
[2020-04-25] MEDS ORDERED: enoxaparin 30mg/0.3ml syringe SQ SCH (20:00)
[2020-04-25] MEDS: apixaban 5mg tablet PO SCH (21:25)
[2020-04-25] MEDS: atorvastatin 20mg tablet PO SCH (21:25)
[2020-04-25] MEDS: amLODIPine 5mg tablet PO SCH (21:25)
[2020-04-26] MEDS: HYDROmorphone/NS 1 mg/ml CADD 50 ML IV SCH ×12 (01:00→23:00)
[2020-04-26 04:13] VITALS: BP 116/98
[2020-04-26 04:53] VITALS: BP 132/87
--- NOTE | 2020-04-26 04:54 | NUR ---
After ambulation, pt HR up in the 130's, 89% on RA. Placed back on 3L O2, 93%, HR 126.
--- NOTE | 2020-04-26 04:57 | NUR ---
Patient refusing the IS; states it gives him PNA. Advised the IS is used to prevent PNA and will excercise the lungs to assist him to get off the O2. IS left at bedside.
[2020-04-26] MEDS: potassium CL 20mEq in D5-1/2NS 1,000 ML IV SCH ×3 (05:00→21:48)
--- NOTE | 2020-04-26 06:15 | NUR ---
Problems reprioritized. Patient report given, questions answered & plan of care reviewed with ADRIANA Morales.
--- NOTE | 2020-04-26 06:48 | NUR ---
Patient in room [facility] 344. I have received report from Aurora WRIGHT and had the opportunity to ask questions and assume patient care.
[2020-04-26 07:00] VITALS: BP 141/98
[2020-04-26] MEDS: pantoprazole 40mg Tablet.DR PO SCH (07:44)
[2020-04-26] MEDS: apixaban 5mg tablet PO SCH ×2 (07:44→21:44)
[2020-04-26] MEDS: lisinopril 10 MG tablet PO SCH (07:45)
--- NOTE | 2020-04-26 09:43 | NUR ---
DM consult: Pt with A1c 5.3%, DM education not warranted at this time. Will continue to follow. Addendum: 04/26/20 at [address] Amended: Links added.
[2020-04-26 11:00] VITALS: BP 134/98
--- NOTE | 2020-04-26 17:35 | NUR ---
patient educated on using cadd appeared to get better pain management following this. Seen by Dr Wang . All cares given patient has not passed gas yet
--- NOTE | 2020-04-26 17:54 | NUR ---
patient ambulated 300ft with assist . 300mls red tinged urine. observed.
[2020-04-26 18:00] VITALS: BP 119/68
--- NOTE | 2020-04-26 18:22 | NUR ---
Problems reprioritized. Patient report given, questions answered & plan of care reviewed with Prudence RN.
--- NOTE | 2020-04-26 18:35 | NUR ---
Patient in room [facility]IAGO 344. I have received report from ANGLE WRIGHT and had the opportunity to ask questions and assume patient care.
[2020-04-26] MEDS ORDERED: enoxaparin 40mg/0.4ml syringe SUBCUT SCH (20:00)
[2020-04-26] MEDS: atorvastatin 20mg tablet PO SCH (21:44)
[2020-04-26] MEDS: amLODIPine 5mg tablet PO SCH (21:45)
[2020-04-27] VITALS: BP 121/76
[2020-04-27] MEDS: HYDROmorphone/NS 1 mg/ml CADD 50 ML IV SCH ×5 (01:00→09:00)
[2020-04-27] MEDS: potassium CL 20mEq in D5-1/2NS 1,000 ML IV SCH ×3 (04:36→20:57)
--- NOTE | 2020-04-27 04:46 | NUR ---
FC DISCONTINUED Addendum: 04/27/20 at 0446 by Minerva Alan RN Amended: Links added.
--- NOTE | 2020-04-27 06:14 | NUR ---
Problems reprioritized. Patient report given, questions answered & plan of care reviewed with PENNY WRIGHT.
--- NOTE | 2020-04-27 06:40 | NUR ---
Patient in room [facility]IAGO 344. I have received report from kadeem MENDOZA and had the opportunity to ask questions and assume patient care.
[2020-04-27] MEDS: apixaban 5mg tablet PO SCH ×2 (07:37→19:47)
[2020-04-27] MEDS: lisinopril 10 MG tablet PO SCH (07:38)
[2020-04-27] MEDS: pantoprazole 40mg Tablet.DR PO SCH (07:38)
[2020-04-27 08:00] VITALS: BP 126/74
[2020-04-27 11:00] VITALS: BP 132/93
[2020-04-27] MEDS ORDERED: oxyCODONE/APAP 10/325mg tablet PO PRN (11:25)
[2020-04-27] MEDS ORDERED: LIDOcaine 4% (40 mg/ml) topical solution 50ml TP PRN (14:00)
[2020-04-27] MEDS: morphine 4 MG/ML inj SYRINge IV PRN (14:51)
[2020-04-27 18:00] VITALS: BP 145/98
--- NOTE | 2020-04-27 18:13 | NUR ---
Problems reprioritized. Patient report given, questions answered & plan of care reviewed with ADRIANA Palma.
--- NOTE | 2020-04-27 18:15 | NUR ---
Patient in room [facility]IAGO 344. I have received report from PENNY WRIGHT and had the opportunity to ask questions and assume patient care.
[2020-04-27] MEDS: oxyCODONE/APAP 10/325mg tablet PO PRN (19:47)
[2020-04-27] MEDS: metFORMIN 500mg tablet PO SCH (19:47)
[2020-04-27] MEDS: amLODIPine 5mg tablet PO SCH (20:56)
[2020-04-27] MEDS: atorvastatin 20mg tablet PO SCH (20:56)
[2020-04-27] MEDS: ondansetron/PF 4mg/2ml inj IV PRN (21:04)
[2020-04-28] VITALS (7 sets, daily range): BP systolic 123–152; BP diastolic 89–107
[2020-04-28] MEDS: potassium CL 20mEq in D5-1/2NS 1,000 ML IV SCH ×3 (01:49→20:29)
[2020-04-28] MEDS: oxyCODONE/APAP 10/325mg tablet PO PRN ×4 (01:49→20:33)
--- NOTE | 2020-04-28 06:29 | NUR ---
Problems reprioritized. Patient report given, questions answered & plan of care reviewed with GIANLUCA WRIGHT.
--- NOTE | 2020-04-28 06:32 | NUR ---
Patient in room [facility]IAGO 344. I have received report from ADRIANA Palma and had the opportunity to ask questions and assume patient care.
[2020-04-28] MEDS: ondansetron/PF 4mg/2ml inj IV PRN (07:54)
[2020-04-28] MEDS: pantoprazole 40mg Tablet.DR PO SCH (07:57)
[2020-04-28] MEDS: lisinopril 10 MG tablet PO SCH (07:57)
[2020-04-28] MEDS: metFORMIN 500mg tablet PO SCH ×2 (07:57→20:32)
[2020-04-28] MEDS: apixaban 5mg tablet PO SCH ×2 (07:57→20:32)
[2020-04-28 08:17] LABS: BASOPHILS # (AUTO) 0.1 X10'3 (0-0.2); BASOPHILS % (AUTO) 0.5 % (0-1); EOSINOPHILS # (AUTO) 0.1 X10'3 (0-0.9); EOSINOPHILS % (AUTO) 1.1 % (0-6); HEMATOCRIT 34.7 % (42.0-52.0); HEMOGLOBIN 11.4 g/dl (14.0-17.9); LYMPHOCYTES # (AUTO) 1.4 X10'3 (1.1-4.8); MEAN CORPUSCULAR HEMOGLOBIN 25.8 PG (27.0-31.0); MEAN CORPUSCULAR HGB CONC 32.9 g/dL (33.0-36.5); MEAN CORPUSCULAR VOLUME 78.4 FL (78-98); MEAN PLATELET VOLUME 7.6 FL (7.4-10.4); MONOCYTES # (AUTO) 0.9 X10'3 (0-0.9); MONOCYTES % (AUTO) 8.4 % (2-12); NEUTROPHILS # (AUTO) 8.4 X10'3 (1.8-7.7); PLATELET COUNT 239 X10'3 (140-440); RED BLOOD COUNT 4.42 X10'6 (4.70-6.10); RED CELL DISTRIBUTION WIDTH 16.7 % (11.5-14.5); WHITE BLOOD COUNT 10.9 X10'3 (4.5-11.0)
[2020-04-28 08:28] LABS: ALANINE AMINOTRANSFERASE 24 U/L (12-78); ALBUMIN/GLOBULIN RATIO 0.7 (1.1-1.5); ALKALINE PHOSPHATASE 46 IU/L (46-116); ANION GAP 8 (8-16); ASPARTATE AMINO TRANSFERASE 11 U/L (10-37); BILIRUBIN,TOTAL 0.7 MG/DL (0.1-1.0); BLOOD UREA NITROGEN 8 MG/DL (7-18); BUN/CREATININE RATIO 10.5 (5.4-32.0); CALCIUM 8.6 MG/DL (8.5-10.1); CHLORIDE 101 MMOL/L (99-107); CREATININE 0.76 MG/DL (0.60-1.10); GLUCOSE 132 MG/DL (70-104); SODIUM 135 MMOL/L (135-145); TOTAL CARBON DIOXIDE 25.8 MMOL/L (24-32); TOTAL PROTEIN 7.6 G/DL (6.4-8.2); eGFR > 90 ML/MIN
[2020-04-28] MEDS: morphine 4 MG/ML inj SYRINge IV PRN (10:22)
--- NOTE | 2020-04-28 11:40 | NUR ---
Patient BP 152/110, 152/107. Patient does c/o pain 11/06 and is up and ambulating. Will administer Percocet as ordered and continue to monitor.
--- NOTE | 2020-04-28 14:25 | NUR ---
Problems reprioritized. Patient report given, questions answered & plan of care reviewed with ADRIANA TESFAYE.
--- NOTE | 2020-04-28 17:22 | NUR ---
Patient in room THIAGO 344B. I have received report from ADRIANA HOUGH and had the opportunity to ask questions and assume patient care.
--- NOTE | 2020-04-28 18:25 | NUR ---
Problems reprioritized. Patient report given, questions answered & plan of care reviewed with ADRIANA ROBERT.
--- NOTE | 2020-04-28 18:30 | NUR ---
Patient in room THIAGO 344. I have received report from Yesi WRIGHT and had the opportunity to ask questions and assume patient care.
[2020-04-28] MEDS: amLODIPine 5mg tablet PO SCH (20:32)
[2020-04-28] MEDS: atorvastatin 20mg tablet PO SCH (20:32)
[2020-04-29] MEDS: oxyCODONE/APAP 10/325mg tablet PO PRN ×5 (00:34→21:49)
[2020-04-29] MEDS: potassium CL 20mEq in D5-1/2NS 1,000 ML IV SCH ×3 (04:33→19:19)
--- NOTE | 2020-04-29 05:25 | NUR ---
EDUCATED PT TO WALK. PT AGREED TO WALK HOWEVER HE WANTS PAIN MEDICATION FIRST AND TO WAIT UNTIL HIS PAIN LEVEL GOES DOWN. WILL CONTINUE TO MONITOR.
--- NOTE | 2020-04-29 06:19 | NUR ---
Patient in room THIAGO 344. I have received report from ADRIANA ROBERT and had the opportunity to ask questions and assume patient care.
[2020-04-29 06:55] VITALS: BP 137/94
[2020-04-29] MEDS: lisinopril 10 MG tablet PO SCH (07:47)
[2020-04-29] MEDS: apixaban 5mg tablet PO SCH ×2 (07:47→19:15)
[2020-04-29] MEDS: metFORMIN 500mg tablet PO SCH ×2 (07:47→19:15)
[2020-04-29] MEDS: pantoprazole 40mg Tablet.DR PO SCH (07:47)
[2020-04-29 11:00] VITALS: BP 119/96
[2020-04-29] MEDS: HYDROmorphone inj. 0.5 MG/0.5 ML DISP.SYRIN IV PRN ×3 (15:00→23:45)
--- NOTE | 2020-04-29 18:20 | NUR ---
Problems reprioritized. Patient report given, questions answered & plan of care reviewed with ADRIANA Jacobsen.
--- NOTE | 2020-04-29 18:29 | NUR ---
Patient in room [facility]. I have received report from Mauricio WRIGHT and had the opportunity to ask questions and assume patient care.
[2020-04-29 20:00] VITALS: BP 138/102
[2020-04-29] MEDS: atorvastatin 20mg tablet PO SCH (21:49)
[2020-04-29] MEDS: amLODIPine 5mg tablet PO SCH (21:51)
[2020-04-29 23:29] VITALS: BP 153/108
[2020-04-30] MEDS: oxyCODONE/APAP 10/325mg tablet PO PRN ×5 (03:06→23:31)
[2020-04-30] MEDS: potassium CL 20mEq in D5-1/2NS 1,000 ML IV SCH ×3 (04:32→22:35)
[2020-04-30] MEDS: HYDROmorphone inj. 0.5 MG/0.5 ML DISP.SYRIN IV PRN ×4 (06:00→21:50)
--- NOTE | 2020-04-30 06:34 | NUR ---
Problems reprioritized. Patient report given, questions answered & plan of care reviewed with Josr RN.
--- NOTE | 2020-04-30 06:39 | NUR ---
Patient in room [facility]. I have received report from Ann-Marie WRIGHT and had the opportunity to ask questions and assume patient care.
[2020-04-30 06:54] VITALS: BP 149/109
[2020-04-30 07:02] LABS: BASOPHILS % (AUTO) 0.5 % (0-1); EOSINOPHILS # (AUTO) 0.4 X10'3 (0-0.9); HEMATOCRIT 36.8 % (42.0-52.0); HEMOGLOBIN 12.4 g/dl (14.0-17.9); LYMPHOCYTES # (AUTO) 1.4 X10'3 (1.1-4.8); LYMPHOCYTES % (AUTO) 15.5 % (21-51); MEAN CORPUSCULAR HGB CONC 33.8 g/dL (33.0-36.5); MEAN PLATELET VOLUME 7.9 FL (7.4-10.4); MONOCYTES # (AUTO) 0.7 X10'3 (0-0.9); MONOCYTES % (AUTO) 7.5 % (2-12); NEUTROPHILS # (AUTO) 6.6 X10'3 (1.8-7.7); NEUTROPHILS % (AUTO) 72.5 % (42-75); PLATELET COUNT 305 X10'3 (140-440); RED BLOOD COUNT 4.78 X10'6 (4.70-6.10); RED CELL DISTRIBUTION WIDTH 16.1 % (11.5-14.5); WHITE BLOOD COUNT 9.1 X10'3 (4.5-11.0)
[2020-04-30 07:21] LABS: ANION GAP 10 (8-16); BLOOD UREA NITROGEN 8 MG/DL (7-18); BUN/CREATININE RATIO 10.1 (5.4-32.0); CALCIUM 8.7 MG/DL (8.5-10.1); CHLORIDE 100 MMOL/L (99-107); CREATININE 0.79 MG/DL (0.60-1.10); GLUCOSE 147 MG/DL (70-104); SODIUM 135 MMOL/L (135-145); eGFR > 90 ML/MIN
[2020-04-30] MEDS: lisinopril 10 MG tablet PO SCH (08:07)
[2020-04-30] MEDS: metFORMIN 500mg tablet PO SCH ×2 (08:07→20:20)
[2020-04-30] MEDS: pantoprazole 40mg Tablet.DR PO SCH (08:07)
[2020-04-30] MEDS: apixaban 5mg tablet PO SCH ×2 (08:08→20:20)
[2020-04-30 11:03] VITALS: BP 138/103
--- NOTE | 2020-04-30 15:43 | NUR ---
Initial: Pt presented with diverticulitis, s/p open reversal colostomy with wound vac dressing on 04/25; pt is ambulating and has not passed gas per MD's notes. Pt last BM 04/25, pt is receiving Dilaudid, if continues with no bowel function, pt may benefit from opiate agonist antagonist, d/w bed side nurse, to d/w surgeon. Pt receiving clear liquid diet, visited pt at bed side, encouraged intake of clear liquid diet and to ambulate. Pt. reports colostomy was originally done 6 months ago, after resection d/t diverticulitis, reports a complex surgical history r/t this. Discuss importance of high protein diet when diet is advanced. Recs: 1. Advanced diet as medically indicated to low fiber/low residue diet 2. If continues without BM, may benefit from opiate agonist antagonist 3. Weight per rx Addendum: 04/30/20 at 1544 by Sudhir CHÁVEZ INTERN RD Amended: Links added. Addendum: 04/30/20 at [address] RD agree with post graduate internship note
--- NOTE | 2020-04-30 18:17 | NUR ---
Problems reprioritized. Patient report given, questions answered & plan of care reviewed with Chaya WRIGHT.
--- NOTE | 2020-04-30 18:30 | NUR ---
Patient in room [facility]. I have received report from VITALIY and had the opportunity to ask questions and assume patient care.
[2020-04-30 19:00] VITALS: BP 143/102
--- NOTE | 2020-04-30 19:00 | NUR ---
PT REFUSED Addendum: 05/01/20 at 0025 by Chaya Horvath RN Amended: Links added.
[2020-04-30] MEDS: atorvastatin 20mg tablet PO SCH (20:20)
[2020-04-30] MEDS: amLODIPine 5mg tablet PO SCH (20:20)
[2020-05-01] VITALS: BP 125/96
[2020-05-01] MEDS: HYDROmorphone inj. 0.5 MG/0.5 ML DISP.SYRIN IV PRN ×3 (03:45→20:38)
[2020-05-01] MEDS: potassium CL 20mEq in D5-1/2NS 1,000 ML IV SCH ×3 (05:36→23:02)
--- NOTE | 2020-05-01 06:30 | NUR ---
Problems reprioritized. Patient report given, questions answered & plan of care reviewed with NATASHA.
[2020-05-01 07:05] VITALS: BP 128/95
[2020-05-01] MEDS: lisinopril 10 MG tablet PO SCH (07:39)
[2020-05-01] MEDS: metFORMIN 500mg tablet PO SCH ×2 (07:39→20:43)
[2020-05-01] MEDS: pantoprazole 40mg Tablet.DR PO SCH (07:39)
[2020-05-01] MEDS: oxyCODONE/APAP 10/325mg tablet PO PRN ×4 (07:39→23:01)
[2020-05-01] MEDS: apixaban 5mg tablet PO SCH ×2 (07:39→20:43)
[2020-05-01 12:33] VITALS: BP 134/96
--- NOTE | 2020-05-01 18:10 | NUR ---
Patient in room [facility]. I have received report from ADRIANA Gillette and had the opportunity to ask questions and assume patient care. Patient resting with eyes closed in no apparent distress.
--- NOTE | 2020-05-01 18:18 | NUR ---
Problems reprioritized. Patient report given, questions answered & plan of care reviewed with ADRIANA Ji.
[2020-05-01 20:00] VITALS: BP 141/99
[2020-05-01] MEDS: atorvastatin 20mg tablet PO SCH (20:42)
[2020-05-01] MEDS: amLODIPine 5mg tablet PO SCH (20:42)
[2020-05-02] VITALS: BP 137/99
[2020-05-02] MEDS: oxyCODONE/APAP 10/325mg tablet PO PRN ×4 (03:57→22:04)
[2020-05-02 07:00] VITALS: BP 133/97
[2020-05-02] MEDS: pantoprazole 40mg Tablet.DR PO SCH (07:57)
[2020-05-02] MEDS: lisinopril 10 MG tablet PO SCH (07:57)
[2020-05-02] MEDS: metFORMIN 500mg tablet PO SCH ×2 (07:57→20:42)
[2020-05-02] MEDS: apixaban 5mg tablet PO SCH ×2 (07:57→20:42)
[2020-05-02] MEDS ORDERED: LIDOcaine 4% (40 mg/ml) topical solution 50ml TP PRN (08:30)
[2020-05-02] MEDS: potassium CL 20mEq in D5-1/2NS 1,000 ML IV SCH ×2 (10:15→17:50)
[2020-05-02] MEDS: HYDROmorphone inj. 0.5 MG/0.5 ML DISP.SYRIN IV PRN (10:36)
[2020-05-02 12:00] VITALS: BP 139/101
[2020-05-02 18:00] VITALS: BP 150/101
[2020-05-02] MEDS: atorvastatin 20mg tablet PO SCH (20:42)
[2020-05-02] MEDS: amLODIPine 5mg tablet PO SCH (20:43)
[2020-05-03] VITALS: BP 125/49
[2020-05-03] MEDS: potassium CL 20mEq in D5-1/2NS 1,000 ML IV SCH ×3 (01:07→17:30)
--- NOTE | 2020-05-03 06:20 | NUR ---
Problems reprioritized. Patient report given, questions answered & plan of care reviewed with ADRIANA Key.
--- NOTE | 2020-05-03 06:45 | NUR ---
Patient in room [facility]. I have received report from ADRIANA PHIPPS and had the opportunity to ask questions and assume patient care.
[2020-05-03 07:00] VITALS: BP 140/94
[2020-05-03] MEDS: pantoprazole 40mg Tablet.DR PO SCH (09:33)
[2020-05-03] MEDS: metFORMIN 500mg tablet PO SCH ×2 (09:33→20:09)
[2020-05-03] MEDS: apixaban 5mg tablet PO SCH ×2 (09:33→20:09)
[2020-05-03] MEDS: lisinopril 10 MG tablet PO SCH (09:34)
[2020-05-03] MEDS: oxyCODONE/APAP 10/325mg tablet PO PRN ×4 (09:34→22:23)
[2020-05-03 12:00] VITALS: BP 127/87
--- NOTE | 2020-05-03 14:25 | NUR ---
Reassessment: Patient's diet has been advanced from clear liquids to CHO controlled. D/w RN recommendation for diet change to low fiber given recent GI surgery and patient with A1c 5.3% with BG range 105-155 since admit. Pt documented to be refusing meals since diet advancement. Pt seen at bedside reports and "all right" appetite that is improving. Patient's lunch tray visible at bedside noted to only have 1/2 egg salad sandwich consumed. Pt not meeting estimated nutrient needs. Pt denies food preferences or nutrition intervention at this time stating he is possibly discharging tomorrow. Pt provided with written and verbal ostomy takedown nutrition therapy education, protein education, and list of fiber content in food. RD further encouraged the importance of protein intake for wound healing and discussed protein rich options. Pt reports having [employer] at home. LBM documented as 2/ though pt reports three BMs s/p ostomy takedown with LBM being today which was liquid per pt. Pt provided with RD contact information and encouraged to reach out if needed. Will continue to follow closely. Recs: 1. Advanced diet as medically indicated to low fiber/low residue diet; pt with A1c 5.3% and BG well controlled during LOS 2. Encourage PO intake 3. Scaled weights per rx Addendum: 05/03/20 at [address] Amended: Links added.
[2020-05-03 18:00] VITALS: BP 133/93
--- NOTE | 2020-05-03 18:08 | NUR ---
Problems reprioritized. Patient report given, questions answered & plan of care reviewed with ADRIANA NAVARRO.
--- NOTE | 2020-05-03 18:16 | NUR ---
Patient in room THIAGO 344. I have received report from Yesi WRIGHT and had the opportunity to ask questions and assume patient care.
[2020-05-03] MEDS: atorvastatin 20mg tablet PO SCH (20:09)
[2020-05-03] MEDS: amLODIPine 5mg tablet PO SCH (20:11)
[2020-05-04] VITALS: BP 125/81
[2020-05-04] MEDS: potassium CL 20mEq in D5-1/2NS 1,000 ML IV SCH ×2 (00:31→08:37)
--- NOTE | 2020-05-04 05:34 | NUR ---
Offered pain meds but patient says pain is under control at this time and not wanting the pain medication.
--- NOTE | 2020-05-04 06:09 | NUR ---
Problems reprioritized. Patient report given, questions answered & plan of care reviewed with Yesi WRIGHT.
--- NOTE | 2020-05-04 06:45 | NUR ---
Patient in room [facility]. I have received report from ADRIANA NAVARRO and had the opportunity to ask questions and assume patient care.
[2020-05-04 07:00] VITALS: BP 92/51
[2020-05-04] MEDS: lisinopril 10 MG tablet PO SCH (08:00)
[2020-05-04] MEDS: pantoprazole 40mg Tablet.DR PO SCH (08:34)
[2020-05-04] MEDS: metFORMIN 500mg tablet PO SCH (08:34)
[2020-05-04] MEDS: apixaban 5mg tablet PO SCH (08:37)
[2020-05-04] MEDS: HYDROmorphone inj. 0.5 MG/0.5 ML DISP.SYRIN IV PRN (09:49)
[2020-05-04 11:00] VITALS: BP 146/102
--- NOTE | 2020-05-04 16:15 | NUR ---
PATIENT STABLE AND APPROPRIATE FOR DISCHARGE, IV TAKEN OUT, EDUCATION GIVEN, PORTABLE WOUND VAC PLACED, WOUND VAC SUPPLIES SENT WITH PATIENT, NEW PRESCRIPTIONS SENT TO PREFERRED PHARMACY, ALL BELONGINGS SENT WITH PATIENT, PATIENT TAKEN IN WHEELCHAIR TO LOBBY TO AN AWAITING CAR WHERE WILL TAKE PATIENT HOME
== END 2020-05-04 16:15 | disposition home or self-care (01) | DRG 330 ==
LOC: PAS IN 06:26 → UNDOADMIN 06:26 → EDSTATUS 09:30 → PAS IN 17:11 → SUR 3N 17:39
PROVIDERS: ADMIT Surgery; ATTEND Surgery
PROC: BT141ZZ Fluoroscopy of Kidneys, Ureters and Bladder using Low Osmolar Contrast (ICD-10-PCS; 2020-04-25)
PROC: 0DBL0ZZ Excision of Transverse Colon, Open Approach (ICD-10-PCS; principal; 2020-04-25 13:38)
PROC: 0T788DZ Dilation of Bilateral Ureters with Intraluminal Device, Via Natural or Artificial Opening Endoscopic (ICD-10-PCS; 2020-04-25 13:38)
DX: Z43.3 Encounter for attention to colostomy (principal); K57.20 Diverticulitis of large intestine with perforation and abscess without bleeding; E11.9 Type 2 diabetes mellitus without complications; I10 Essential (primary) hypertension; Z86.711 Personal history of pulmonary embolism; Z87.01 Personal history of pneumonia (recurrent); Z79.899 Other long term (current) drug therapy
CPT/HCPCS: Z7506; Z7508; 36415; 71046; 76000; 80048; 80053; 81003; 82948; 83036; 85025; 86885; 86900; 86901; 87081; 87635; 93005; A4618; A6550; A7000; C1758; C1769; G0378; J0131; J0694; J1100; J1170; J2001; J2175; J2250; J2270; J2405; J2704; J2710; J3010; J3480; J3490; J7120; Q9967